=== PATIENT | female | born 1930 | race Caucasian/White ===

== ENCOUNTER 2018-07-23 20:21 | Observation (INO) ==
[2018-07-24] MEDS ORDERED: Naloxone 0.4 MG/ML INJ IVP PRN (02:20)
[2018-07-24] MEDS ORDERED: Dextrose Gel 15 GM/37.5 ML TUBE PO PRN ×2 (02:22)
[2018-07-24] MEDS ORDERED: D5% in Water 1,000 ML IVC PRN (02:22)
[2018-07-24] MEDS ORDERED: *HR* Dextrose 50 % in Water (Syg) 50 ML SYRINGE IVP PRN (02:22)
--- NOTE | 2018-07-24 02:25 | Internal Med History&Physical ---
Date of Encounter: 07/24/18 Time of Encounter: 01:30 Internal Medicine - H&P: HPI Chief complaint: Chest pain, bradycardia Admitted From: Hospital to Hospital Transfer Plans for Post Hospital Care: Home History of present illness: Ms. Malagon is a 88 year old female Patient presented for chest pain as well as bradycardia. She states that she began having discomfort 2 days ago, thought it was acid reflux. When her daughter had come to visit, she noted that she was breathing heavily, and looked pale. She encouraged her mom to then go to the ER for evaluation. Patient describes her pain as heaviness, no radiation. Feels it in the center of her chest. She sees. Dr. Foster of cardiology outpatient, and has had discussions with him regarding her low heart rate. She has a history of atrial fibrillation. In the ER her chest x-ray showed bibasilar atelectasis or infiltrate, right greater than left with mild pulmonary vascular congestion. Troponin was undetectable, cbc showed a thrombocytopenia of 107. BMP was at baseline. EKG showed a rate of 53, and atrial fibrillation. Cardiology was called from the ER at [place], and will see the patient in consult when she arrives at [facility]. They recommended an echocardiogram in the AM. She was transferred her for further management. Currently patient denies chest pain, has not had shortness of breath. She is resting comfortably in the hospital bed. She denies nausea, vomiting, diarrhea, constipation, and abdominal pain as well. Past Med Surg Social Fam HX - Past Medical History Medical history: atrial fibrillation, diabetes, hyperlipidemia, hypertension, thyroid disease, other Additional medical history: A-Fib, Breast CA Psychiatric history: anxiety - Past Surgical History Surgical History: breast surgery, hysterectomy Additional surgical history: Left mastectomy - Social History Smoking Status: Never smoker Smokeless Tobacco Status: No Alcohol use: none Drug use: none Internal Medicine - H&P: Meds Amlodipine [Norvasc] 5 mg PO DAILY 06/15/15 [History] Aspirin [Aspirin] 81 mg PO DAILY 06/15/15 [History] Glimepiride [Amaryl] 2 mg PO DAILY 06/15/15 [History] Albuterol Sulfate [Albuterol Inhaler] 2 puff IH Q6HR PRN #1 [id number] 10/29/16 [Rx] Apixaban [Eliquis] 2.5 mg PO DAILY 12/16/17 [History] Levothyroxine [Synthroid] 175 mcg PO 0630 12/16/17 [History] Lisinopril [Zestril] 10 mg PO DAILY 12/16/17 [History] 3 Allergy/AdvReac Type Severity Reaction Status Date / Time No Known Allergies Allergy Verified 12/16/17 21:40 All Systems PM: A 10-system review of systems was performed and is negative for pertinent findings except as documented above in the HPI. - Constitutional Vitals: Temp Pulse Resp BP Pulse Ox 97.5 F L 63 16 149/90 97 07/23/18 22:44 07/23/18 22:44 07/23/18 22:44 07/23/18 22:44 07/23/18 22:44 General appearance: Present: cooperative, A&O X 3, pleasant, no acute distress, answers questions appropriately Exam: as above - Head Head exam: Present: normal inspection - Eye Eye exam: Present: EOMI, normal appearance - Neck Neck exam general surgery: Present: full ROM. Absent: tenderness - Respiratory Respiratory exam: Present: CTAB. Absent: chest wall tenderness, respiratory distress, wheezes - Cardiovascular Cardiovascular exam: Present: bradycardia. Absent: diastolic murmur, systolic murmur - GI/Abdominal GI/Abdominal exam: Present: normal bowel sounds, soft. Absent: tenderness - Extremities Exam Extremities exam: Present: warm, radial pulses palpable and symmetrical. Absent : calf tenderness, pedal edema, tenderness - Neurological Exam Neurological exam: Present: no focal deficits, strengths equal and symetr throughout. Absent: motor sensory deficit, facial droop, speech deficit - Skin Skin exam: Present: dry, normal color, warm - Assessment and plan (1) Bradycardia Current Visit: No Status: Acute Assessment and plan: Heart rate around the mid 50s. Has had mentioned to her that she may need a pace maker in the future. campus monitor Continue to trend troponins. Cardiology consult in the morning. (2) Atrial fibrillation Current Visit: No Status: Acute Assessment and plan: Rate of 53, takes eliquis for anticoagulation. Continue to monitor. Cardiology consult in the AM. Qualifiers: Atrial fibrillation type: chronic Qualified Code(s): I48.2 - Chronic atrial fibrillation (3) Chest pain Current Visit: Yes Status: Acute Assessment and plan: Now resolved. Continue to trend troponins. Qualifiers: Qualified Code(s): R07.9 - Chest pain, unspecified (4) Diabetes Current Visit: Yes Status: Acute Assessment and plan: Takes glimepiride at home. Hold home meds Monitor sugars Q6H Low dose sliding scale insulin as needed. Qualifiers: Qualified Code(s): E11.9 - Type 2 diabetes mellitus without complications (5) Hypothyroid Current Visit: Yes Status: Acute Assessment and plan: Takes levothyroxine at home. Continue home meds Qualifiers: Qualified Code(s): E03.9 - Hypothyroidism, unspecified (6) History of hypertension Current Visit: Yes Status: Acute Assessment and plan: Currently controlled Continue to monitor. (7) DVT prophylaxis Current Visit: Yes Status: Acute Assessment and plan: Patient takes eliquis at home, may be getting a pace maker today. Will hold eliquis for now, SCDs until decision made about pace maker. - Time Spent With Patient Total time spent is greater than 50% in coordination of care (as documented) at patient's floor/unit and/or counseling patient: Greater than 35 minutes
[2018-07-24] MEDS: Insulin LISPRO 300 UNITS/3 ML VIAL SQ SCH ×3 (06:35→17:50)
[2018-07-24 06:57] LABS: Hematocrit 50.5 % (35.3-44.9); Mean Corpuscular HGB Conc 31.7 g/dL (31.6-35.5); Mean Corpuscular Hemoglobin 29.5 pg (28.0-33.3); Mean Platelet Volume 12.3 fL (9.4-12.4); Platelet Count 107 K/mcL (140-400); Red Blood Count 5.43 M/mcL (3.82-4.97); Red Cell Distribution Width 14.1 % (11.5-14.5)
[2018-07-24 07:25] LABS: Calcium 9.6 mg/dL (8.6-10.3)
[2018-07-24] MEDS ORDERED: Perflutren Lipid Microsphere 1.3 ML in 0.9 % Sodium Chloride 8.7 ML IVP ONE (09:36)
--- NOTE | 2018-07-24 10:23 | Internal Med Progress Note ---
<Keshawn Perez - Last Filed: 07/24/18 16:57> Hospitalist Progress Note - Encounter Date of Encounter: 07/24/18 Time of Encounter: 10:16 - Subjective Interval History: Patient seen and examined this morning, no acute events overnight Patient no longer continues of chest pain, she states she is thirsty I advised her that we would be performing an echocardiogram on her and would await further recommendations from cardiology She understood and agreed - Exam Vitals: Temp Pulse Resp BP Pulse Ox 97.6 F 51 18 108/68 94 07/24/18 07:35 07/24/18 07:35 07/24/18 07:35 07/24/18 07:35 07/24/18 07:35 Exam: Patient in no acute distress, alert and oriented 3 Heart in bradycardic rate and regular rhythm, no murmur or gallop Lung sounds clear in the superior lung ram, mild diffuse rales in the inferior lung ram Abdomen obese and soft and nontender Legs nonedematous Skin warm and dry - Assessment and Plan (1) Chest pain Current Visit: Yes Status: Acute Assessment and Plan: Patient presented with chest pain that she described as pressure without radiation Troponins trended in the emergency department were negative EKG showed atrial fibrillation with bradycardia but was otherwise normal Plan Chest pain has resolved We will address bradycardia and atrial fibrillation Cardiology consulted Patient is on continuous telemetry (2) Bradycardia Current Visit: Yes Status: Acute Assessment and Plan: Patient continues to be bradycardic Cardiology has been consulted and will see the patient this morning Apparently she has had a conversation with Dr. Foster in the past about a pacemaker Plan Patient is on continuous telemetry Echocardiogram ordered and scheduled for this morning We will continue to monitor the patient and defer to cardiology recommendations (3) Atrial fibrillation Current Visit: Yes Status: Chronic Assessment and Plan: Patient has a chronic history of atrial fibrillation for which she takes Eliquis for anticoagulation On exam patient is bradycardic with regular rhythm Plan Patient on continuous telemetry Cardiology consult, and requests is being held for now until decision about pacemakers is made Echocardiogram ordered and scheduled for this morning Rest of plan as seen above we will continue to monitor (4) Diabetes Current Visit: Yes Status: Acute Assessment and Plan: Patient takes glimepiride at home Plan Hold home meds Low dose sliding scale insulin and 6hr glucose checks (5) Hypothyroid Current Visit: Yes Status: Acute Assessment and Plan: Patient takes Synthroid at home which we will continue here (6) History of hypertension Current Visit: Yes Status: Acute Assessment and Plan: Patient takes lisinopril here Blood pressure currently controlled and stable without medication we will continue to monitor (7) Thrombocytopenia Current Visit: Yes Status: Acute Assessment and Plan: Patient presented with thrombocytopenia (107) however based on data from previous visits this appears to be her baseline 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 CMP in the AM to assess liver function We will continue to monitor serial labs and for signs of bleeding DVT Prophylaxis: EPCDs - Time Spent with Patient Total time spent is greater than 50% in coordination of care (as documented) at patient's floor/unit and/or counseling patient: Internal Medicine: Result - Labs CBC & Chem 7: 07/24/18 06:43 07/24/18 06:43 Labs: Short CBC 07/24/18 Range/Units 06:43 WBC 8.4 (4.3-11.1) K/mcL Hgb 16.0 H (11.5-15.4) g/dL Hct 50.5 H (35.3-44.9) % Plt Count 107 L (140-400) K/mcL BMP 07/24/18 06:43 Sodium 145 Potassium 4.0 Chloride 110 H Carbon Dioxide 27 BUN 25 H Creatinine 1.12 Glucose 152 H Calcium 9.6 Cardiac Enzymes 07/24/18 07/24/18 Range/Units 02:04 07:55 Troponin I < 0.03 < 0.03 (< 0.04) ng/mL Consult Discharge Plan - Plan Referrals: Benedicto Lynn DO [Primary Care Provider] - <Jarad Jiménez - Last Filed: 07/24/18 17:49> Hospitalist Progress Note - Encounter Date of Encounter: 07/24/18 - Exam Vitals: Temp Pulse Resp BP Pulse Ox 98.0 F 61 18 132/59 95 07/24/18 15:44 07/24/18 15:44 07/24/18 15:44 07/24/18 15:44 07/24/18 15:44 - Assessment and Plan (1) Atrial fibrillation Current Visit: Yes Status: Chronic (2) Bradycardia Current Visit: Yes Status: Acute (3) Chest pain Current Visit: Yes Status: Acute (4) Diabetes Current Visit: Yes Status: Acute (5) Hypothyroid Current Visit: Yes Status: Acute (6) History of hypertension Current Visit: Yes Status: Acute (7) Thrombocytopenia Current Visit: Yes Status: Acute - Time Spent with Patient Total time spent is greater than 50% in coordination of care (as documented) at patient's floor/unit and/or counseling patient: Internal Medicine: Result - Labs CBC & Chem 7: 07/24/18 06:43 07/24/18 06:43 Labs: Short CBC 07/24/18 Range/Units 06:43 WBC 8.4 (4.3-11.1) K/mcL Hgb 16.0 H (11.5-15.4) g/dL Hct 50.5 H (35.3-44.9) % Plt Count 107 L (140-400) K/mcL BMP 07/24/18 06:43 Sodium 145 Potassium 4.0 Chloride 110 H Carbon Dioxide 27 BUN 25 H Creatinine 1.12 Glucose 152 H Calcium 9.6 Cardiac Enzymes 07/24/18 07/24/18 Range/Units 02:04 07:55 Troponin I < 0.03 < 0.03 (< 0.04) ng/mL - Impressions Impressions Echocardiogram 07/24/18 06:42 Impressions: LVEF 60%. Normal LV chamber size, wall thickness and function. Indeterminate diastolic function. Right ventricle was not well visualized. Grossly, it is normal in size and function. Mild pulmonary hypertension. No significant valvular dysfunction. There is a small to moderate pericardial effusion, which is largest along the inferior and inferolateral segments of the LV. No tamponade. Left Ventricular Wall Motion: Rest Echo Findings All wall segments showed normal motion. Findings: Study Quality * Technically adequate exam. ECG Findings * Atrial fibrillation. Left Ventricle * LVEF 60%. * Normal LV chamber size, wall thickness and function. * Indeterminate diastolic function. Right Ventricle * Right ventricle was not well visualized. Grossly, it is normal in size and function. Left Atrium * Mildly dilated left atrium. Right Atrium * Normal right atrial size. Aortic Valve * Aortic valve not well visualized. * No aortic regurgitation. * No aortic stenosis. Mitral Valve * Normal mitral valve structure and function. * No mitral stenosis. * Trace mitral regurgitation. Tricuspid Valve * Normal tricuspid valve structure and function. * Trace tricuspid regurgitation. * Mild pulmonary hypertension. Pulmonic Valve * Pulmonic valve not well visualized. Aorta * Normally sized aortic root. Pericardium * There is a small to moderate pericardial effusion present, which is largest along the inferior and inferolateral segments of the LV. No tamponade. IVC * The IVC is not well evaluated. Pulmonary Artery * Normal visualized portions of the main pulmonary artery. - Attending Attestation I examined this patient and my medical decision-making was reviewed with the Resident Physician. I agree with the documented findings, disposition and treatment plan as described except to the extent set forth below. <Keshawn Perez - Last Filed: 07/24/18 16:57> (1) Chest pain Qualifiers: Chest pain type: unspecified Qualified Code(s): R07.9 - Chest pain, unspecified (3) Atrial fibrillation Qualifiers: Atrial fibrillation type: chronic Qualified Code(s): I48.2 - Chronic atrial fibrillation (4) Diabetes Qualifiers: Diabetes mellitus type: type 2 Diabetes mellitus long chain beamer insulin use: without custodial use Diabetes mellitus complication status: without complication Qualified Code(s): E11.9 - Type 2 diabetes mellitus without complications (5) Hypothyroid Qualifiers: Hypothyroidism type: unspecified Qualified Code(s): E03.9 - Hypothyroidism, unspecified <Joym,Fran Rheem - Last Filed: 07/24/18 17:49> (1) Atrial fibrillation Qualifiers: Atrial fibrillation type: chronic Qualified Code(s): I48.2 - Chronic atrial fibrillation (3) Chest pain Qualifiers: Chest pain type: unspecified Qualified Code(s): R07.9 - Chest pain, unspecified (4) Diabetes Qualifiers: Diabetes mellitus type: type 2 Diabetes mellitus custodial insulin use: without long chain beamer use Diabetes mellitus complication status: without complication Qualified Code(s): E11.9 - Type 2 diabetes mellitus without complications (5) Hypothyroid Qualifiers: Hypothyroidism type: unspecified Qualified Code(s): E03.9 - Hypothyroidism, unspecified
--- NOTE | 2018-07-24 11:49 | Cardiology Consult Note ---
<Ronda Urban - Last Filed: 07/24/18 12:16> Date of Encounter: 07/24/18 Time of Encounter: 11:00 Assessment and Plan (1) Chest pain Current Visit: Yes Status: Acute Per cardiology: -Admitted with chest tightness. -Further described as orthopnea. -Deneis current chest pain. -States pain resolved after IV lasix. -ECG with no acute ischemic changes. -Troponins negative x3. -Suspect chest pain related to CHF. Qualifiers: Chest pain type: unspecified Qualified Code(s): R07.9 - Chest pain, unspecified (2) CHF (congestive heart failure) Current Visit: Yes Status: Acute Per cardiology: -Symptoms suggestive of CHF. -Chest x-ray with mild pulmonary vascular congestion. -BNP 200 on admission. -Was given IV lasix in ER. -Currently net negative 700ml. -States symptoms now resolved. -TTE pending. -09/2016 TTE with LVEF 60%, indeterminate diastolic function, mild UT, no segmental wall motion abnormalities noted. -Strict i/os, fluid restriction, daily weights. -CHF education reviewed with patient and family -Will start daily lasix. Qualifiers: Heart failure type: unspecified Heart failure chronicity: unspecified Qualified Code(s): I50.9 - Heart failure, unspecified (3) Atrial fibrillation Current Visit: Yes Status: Chronic Per cardiology: -Known chronic a.fib. -Known bradycardia. -Average HR previous 12 hours noted to be 63, a.fib. Minimum HR 48, nocturnal. -Has recent holter 01/2018 with a.fib, HR 57. Frequent pauses up to 3.5 seconds. Was seen by OP EP who recommended close monitoring and compliance with CPAP. -Deneis dizziness, lightheadedness. -Not on AV christelle mikel due to bradycardia. ON eliquis in outpatient setting. -If no significant findings, recommend resuming eliquis. Qualifiers: Atrial fibrillation type: chronic Qualified Code(s): I48.2 - Chronic atrial fibrillation Discussion w patient/family: The assessment and plan as outlined above was discussed with the patient and/or family members who expressed understanding and agreement. All questions were answered. Thank you for involving us in the care of your patient. Please call with any questions. Discussed and reviewed with . History of Present Illness Consult date: 07/24/18 Requesting physician: Omero Parker Consult reason: bradycardia Chief complaint: chest tightness History of present illness: Ms. Malagon is a 88 year old female with a relevant past medical history of atrial fibrillation, bradycardia, ANGELITO, HTN, HLD, breast cancer who presented to [facility] with complaints of chest tightness, shortness of breath, and just not feeling well. Patient states for the previous 2 days had noticed some chest tightness when laying down. Patient also reported some shortness of breath. Denies worsening edema. Denies exertional chest pain/tightness. Patient denies current chest pain/tightness. Patient states symptoms resolved after given IV lasix in ER. Denies dizziness, lightheadedness. Past Med Surg Social Fam HX - Past Medical History Attestation: Yes The following information was validated with the patient. Source: patient, old records reviewed, obtained from family Medical history: atrial fibrillation, diabetes, hyperlipidemia, hypertension, thyroid disease, other Additional medical history: A-Fib, Breast CA Psychiatric history: anxiety - Past Surgical History Surgical History: breast surgery, hysterectomy Additional surgical history: Left mastectomy - Social History Smoking Status: Never smoker Smokeless Tobacco Status: No Alcohol use: none Drug use: none Medications and Allergies Amlodipine [Norvasc] 5 mg PO DAILY 06/15/15 [History] Aspirin [Aspirin] 81 mg PO DAILY 06/15/15 [History] Glimepiride [Amaryl] 6 mg PO DAILY 06/15/15 [History] Apixaban [Eliquis] 2.5 mg PO BID 12/16/17 [History] Lisinopril [Zestril] 10 mg PO DAILY 12/16/17 [History] Levothyroxine [Levothyroxine Sodium] 137 mcg PO DAILY 07/24/18 [History] Simvastatin [Zocor] 20 mg PO HS 07/24/18 [History] 3 Allergy/AdvReac Type Severity Reaction Status Date / Time No Known Allergies Allergy Verified 12/16/17 21:40 All Systems Review: The remainder of the systems were reviewed and are negative - Cardiovascular Cardiovascular: as per HPI, chest pain at rest, dyspnea at rest, dyspnea on exertion, orthopnea Physical Examination Vital Signs, Last 4 Hours Temp Pulse Resp BP Pulse Ox 07/24/18 10:52 97.7 F 69 18 113/79 96 General: Conversant, No Apparent Distress HEENT: Atraumatic, Normocephaly, Mucus Membranes Moist Neck: No JVD, Normal carotid pulses Cardiac: Normal S1 and S2, No Murmur, Other (Irregularly irregular) Lungs: Normal Breath Sounds, No Wheeze, Rales, Rhonchi Neuro: Alert and responsive, No focal deficits noted Abdomen: Soft, Non-Tender Skin: No rashes noted on visualized skin Musculoskeletal: No Chest Wall Tenderness Extremities: No Clubbing, No Cyanosis, No Edema, Normal Pulses Results 07/24/18 06:43 07/24/18 06:43 Lab Results Active Medications Dextrose/Water (Dextrose 50% (Syg)) 25 ml IVP AD PRN PRN Reason: Hypoglycemia Stop: 01/23/19 02:23 Glucagon (Glucagen) 1 mg IM ONCE PRN PRN Reason: Hypoglycemia Stop: 01/23/19 02:23 Glucose (Gluctose) 15 gm PO ONCE PRN PRN Reason: Hypoglycemia Stop: 01/23/19 02:23 Glucose (Gluctose) 30 gm PO ONCE PRN PRN Reason: Hypoglycemia Stop: 01/23/19 02:23 Dextrose (Dextrose 5%) 1,000 mls @ 100 mls/hr IVC .Q10H PRN PRN Reason: HYPOGLYCEMIA Stop: 01/23/19 02:23 Insulin Human Lispro (Humalog) 0 units SQ Q6HR RUFINA PRN Reason: Protocol Stop: 01/23/19 06:01 Last Admin: 07/24/18 11:56 Dose: Not Given Naloxone HCl (Narcan) 0.4 mg IVP Q2MIN PRN PRN Reason: SEE COMMENTS Stop: 01/23/19 02:21 Laboratory Tests 07/23/18 07/24/18 07/24/18 17:23 02:04 06:43 Hgb 16.0 H Creatinine Troponin I < 0.03 < 0.03 07/24/18 07/24/18 06:43 07:55 Hgb Creatinine 1.12 Troponin I < 0.03 - Imaging and Cardiology Chest Xray: report reviewed Stress Test: report reviewed Echo: pending, report reviewed - EKG Interpretation EKG results cardiology: personally reviewed (ECG with a.fib, slow ventricular response, HR 53.), other (Telemetry reviewed with average HR previous 12 hours noted to be 63, a.fib. Minimum HR 48, nocturnal. PVCs noted.) Consult Discharge Plan - Plan Referrals: Benedicto Lynn, DO [Primary Care Provider] - <Bernice Sellers - Last Filed: 07/24/18 19:34> Date of Encounter: 07/24/18 - Attending Attestation Patient was seen and evaluated independently by me. Findings, assessment and plan were discussed at length with patient, questions answered. Agree with nurse practitioner's documentation. Addition as follows, 88 yoCF hf chronic Afib slow VR, pause<5", ANGELITO, breast Ca. P/w atypical chst pain, dyspnea. No ischemic ECG changes, neg trop. Responded to lasix. VR ok w/o AV blockers. Pt feels better when seen. HD stable, bibasilar fine crackles, no LE edema. TTE EF 60%, small pericardial effusion w/o tamponade A: HFpEF mild fluid overload, chronic afib with slow VR, pause<5" P: lasix for volume ctr ask family and pt to get a scale at home for daily wt, if wt gain >3lb, extra lasix dose with KCL 2-3 days eliquis outpt f/u for need for PPM Bernice Sellers MD, PhD Assessment and Plan Discussion w patient/family: The assessment and plan as outlined above was discussed with the patient and/or family members who expressed understanding and agreement. All questions were answered. Thank you for involving us in the care of your patient. Please call with any questions. History of Present Illness History of present illness: Ms. Malagon is a 88 year old female All Systems Review: The remainder of the systems were reviewed and are negative Physical Examination Vital Signs, Last 4 Hours Temp Pulse Resp BP Pulse Ox 07/24/18 19:03 97.5 F L 60 22 127/81 92 07/24/18 15:44 98.0 F 61 18 132/59 95 Results 07/24/18 06:43 07/24/18 06:43 Lab Results 07/24/18 07/24/18 07/24/18 02:04 06:43 06:43 WBC 8.4 Hgb 16.0 H Hct 50.5 H Plt Count 107 L Sodium 145 Potassium 4.0 Chloride 110 H Carbon Dioxide 27 BUN 25 H Creatinine 1.12 Glucose 152 H Calcium 9.6 Troponin I < 0.03 07/24/18 07:55 WBC Hgb Hct Plt Count Sodium Potassium Chloride Carbon Dioxide BUN Creatinine Glucose Calcium Troponin I < 0.03
[2018-07-24] MEDS ORDERED: Furosemide 40 MG/4 ML VIAL IVP SCH (12:30)
[2018-07-24] MEDS: Furosemide 20 MG TABLET PO SCH (13:16)
[2018-07-24] MEDS: Apixaban 5 MG TABLET PO SCH (20:38)
[2018-07-25] MEDS: Insulin LISPRO 300 UNITS/3 ML VIAL SQ SCH ×4 (00:41→16:58)
[2018-07-25 04:21] LABS: Basophils % 0.4 %; Eosinophils # 0.1 K/mcL (0.0-0.6); Eosinophils % 1.2 %; Hematocrit 50.3 % (35.3-44.9); Immature Granulocytes % 0.8 % (0-4); Lymphocytes % 11.5 %; Mean Corpuscular HGB Conc 31.8 g/dL (31.6-35.5); Mean Corpuscular Hemoglobin 29.2 pg (28.0-33.3); Mean Corpuscular Volume 91.8 fL (83.0-100.0); Mean Platelet Volume 11.9 fL (9.4-12.4); Monocytes % 11.9 %; Neutrophils # 6.1 K/mcL (1.6-8.9); Platelet Count 103 K/mcL (140-400); Red Blood Count 5.48 M/mcL (3.82-4.97); Segmented Neutrophils % 74.2 %
[2018-07-25 04:38] LABS: Albumin 3.5 g/dL (3.5-5.7); Albumin/Globulin Ratio 1.3 (1.1-2.2); Bilirubin,Total 0.7 mg/dL (0.3-1.0); Calcium 9.3 mg/dL (8.6-10.3); Globulin 2.8 g/dL (2.4-3.5); Potassium 3.7 mEq/L (3.5-5.1); Total Protein 6.3 g/dL (6.4-8.9)
[2018-07-25] MEDS ORDERED: Furosemide 20 MG/2 ML VIAL IVP ONE (07:28)
--- NOTE | 2018-07-25 08:02 | Event Note ---
Date of Encounter: 07/25/18 Time of Encounter: 08:00 - Cardiology Event Note Per 's note, diuresing well with lasix, currently net negative 1L. Diastolic CHF. A.fib with slow ventricular response, chronic. Cardiology will sign off and will arrange close outpatient follow up.
[2018-07-25] MEDS: Furosemide 20 MG TABLET PO SCH (10:38)
[2018-07-25] MEDS: amLODIPine 5 MG TABLET PO SCH (10:38)
[2018-07-25] MEDS: Aspirin 81 MG TAB.CHEW PO SCH (10:38)
[2018-07-25] MEDS: Apixaban 5 MG TABLET PO SCH ×2 (10:57→20:37)
--- NOTE | 2018-07-25 15:02 | Internal Med Progress Note ---
<Keshawn Perez - Last Filed: 07/25/18 14:59> Hospitalist Progress Note - Encounter Date of Encounter: 07/25/18 Time of Encounter: 14:59 - Subjective Interval History: Patient seen and examined this morning, no acute events overnight Patient no longer complains of chest pain, she states she wants to go home I advised her that we recommended staying another day for continued diuresis She understood and agreed She also stated that she would like her code status changed to DNR/DNI - Exam Vitals: Temp Pulse Resp BP Pulse Ox 97.9 F 57 17 140/53 94 07/25/18 11:11 07/25/18 11:11 07/25/18 11:11 07/25/18 11:11 07/25/18 11:11 Exam: Patient in no acute distress, alert and oriented 3 Heart in bradycardic rate and regular rhythm, no murmur or gallop Lung sounds clear in the superior lung ram, mild diffuse rales in the inferior lung ram Abdomen obese and soft and nontender Legs nonedematous Skin warm and dry - Assessment and Plan (1) Chest pain Current Visit: Yes Status: Resolved Assessment and Plan: Patient presented with chest pain that she described as pressure without radiation Troponins trended in the emergency department were negative EKG showed atrial fibrillation with bradycardia but was otherwise normal Plan Chest pain has resolved Likely secondary to pleural effusion We will continue diuresis Cardiology consulted and recommends continued medical management with eliquis and outpatient follow up Patient is on continuous telemetry We will continue to monitor (2) Bradycardia Current Visit: Yes Status: Acute Assessment and Plan: Patient continues to be bradycardic Cardiology has been consulted and recommends medical management and outpatient follow up Plan Patient is on continuous telemetry Echocardiogram showed EF 60%, small pericardial effusion, otherwise relatively normal We will continue to monitor (3) Atrial fibrillation Current Visit: Yes Status: Chronic Assessment and Plan: Patient has a chronic history of atrial fibrillation for which she takes Eliquis for anticoagulation On exam patient is bradycardic with regular rhythm Plan Patient on continuous telemetry Rest of plan as seen above we will continue to monitor (4) Diabetes Current Visit: Yes Status: Acute Assessment and Plan: Patient takes glimepiride at home Plan Hold home meds Low dose sliding scale insulin and 6hr glucose checks (5) Hypothyroid Current Visit: Yes Status: Acute Assessment and Plan: Patient takes Synthroid at home which we will continue here (6) History of hypertension Current Visit: Yes Status: Acute Assessment and Plan: Patient takes lisinopril here Blood pressure currently controlled and stable without medication we will continue to monitor (7) Thrombocytopenia Current Visit: Yes Status: Acute Assessment and Plan: Patient presented with thrombocytopenia (107) however based on data from previous visits this appears to be her baseline 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 CMP negative for evidence of impaired hepatic function Recommend further follow up outpatient We will continue to monitor serial labs and for signs of bleeding DVT Prophylaxis: Eliquis - Time Spent with Patient Total time spent is greater than 50% in coordination of care (as documented) at patient's floor/unit and/or counseling patient: Internal Medicine: Result - Labs CBC & Chem 7: 07/25/18 03:56 07/25/18 03:56 Labs: Short CBC 07/25/18 Range/Units 03:56 WBC 8.3 (4.3-11.1) K/mcL Hgb 16.0 H (11.5-15.4) g/dL Hct 50.3 H (35.3-44.9) % Plt Count 103 L (140-400) K/mcL Neutrophils # 6.1 (1.6-8.9) K/mcL BMP 07/25/18 03:56 Sodium 143 Potassium 3.7 Chloride 107 Carbon Dioxide 29 BUN 26 H Creatinine 1.29 H Glucose 143 H Calcium 9.3 Liver Function 07/25/18 Range/Units 03:56 Total Bilirubin 0.7 (0.3-1.0) mg/dL AST 19 (13-39) Units/L ALT 15 (7-52) Units/L Alkaline Phosphatase 65 (34-104) Units/L Albumin 3.5 (3.5-5.7) g/dL - VTE Documentation of Mechanical Device: Intermittent pneumatic compression device Consult Discharge Plan - Plan Referrals: Benedicto Lynn DO [Primary Care Provider] - <Jarad Jiménez - Last Filed: 07/25/18 17:34> Hospitalist Progress Note - Encounter Date of Encounter: 07/25/18 - Exam Vitals: Temp Pulse Resp BP Pulse Ox 97.8 F 54 17 125/71 91 07/25/18 15:13 07/25/18 15:13 07/25/18 15:13 07/25/18 15:13 07/25/18 15:13 - Assessment and Plan (1) Atrial fibrillation Current Visit: Yes Status: Chronic (2) Bradycardia Current Visit: Yes Status: Acute (3) Chest pain Current Visit: Yes Status: Resolved (4) Diabetes Current Visit: Yes Status: Acute (5) Hypothyroid Current Visit: Yes Status: Acute (6) History of hypertension Current Visit: Yes Status: Acute (7) Thrombocytopenia Current Visit: Yes Status: Acute - Time Spent with Patient Total time spent is greater than 50% in coordination of care (as documented) at patient's floor/unit and/or counseling patient: Internal Medicine: Result - Labs CBC & Chem 7: 07/25/18 03:56 07/25/18 03:56 Labs: Short CBC 07/25/18 Range/Units 03:56 WBC 8.3 (4.3-11.1) K/mcL Hgb 16.0 H (11.5-15.4) g/dL Hct 50.3 H (35.3-44.9) % Plt Count 103 L (140-400) K/mcL Neutrophils # 6.1 (1.6-8.9) K/mcL BMP 07/25/18 03:56 Sodium 143 Potassium 3.7 Chloride 107 Carbon Dioxide 29 BUN 26 H Creatinine 1.29 H Glucose 143 H Calcium 9.3 Liver Function 07/25/18 Range/Units 03:56 Total Bilirubin 0.7 (0.3-1.0) mg/dL AST 19 (13-39) Units/L ALT 15 (7-52) Units/L Alkaline Phosphatase 65 (34-104) Units/L Albumin 3.5 (3.5-5.7) g/dL - Attending Attestation I examined this patient and my medical decision-making was reviewed with the Resident Physician. I agree with the documented findings, disposition and treatment plan as described except to the extent set forth below. Okay to hold off IV lasix for now and just resume home PO Lasix dose. Sleep stud tonight. Likely there is ANGELITO component to patient's symptoms. She has difficulties with masks and she may refuse sleep study tonight but will try. If patient remains stable, likely discharge tomorrow. Discussed code status with patient and POA, she decides DNR CCA/CCI. <Keshawn Perez - Last Filed: 07/25/18 14:59> (1) Chest pain Qualifiers: Chest pain type: unspecified Qualified Code(s): R07.9 - Chest pain, unspecified (3) Atrial fibrillation Qualifiers: Atrial fibrillation type: chronic Qualified Code(s): I48.2 - Chronic atrial fibrillation (4) Diabetes Qualifiers: Diabetes mellitus type: type 2 Diabetes mellitus terminal computer operator insulin use: without terminal computer operator use Diabetes mellitus complication status: without complication Qualified Code(s): E11.9 - Type 2 diabetes mellitus without complications (5) Hypothyroid Qualifiers: Hypothyroidism type: unspecified Qualified Code(s): E03.9 - Hypothyroidism, unspecified <Jarad Jiménez - Last Filed: 07/25/18 17:34> (1) Atrial fibrillation Qualifiers: Atrial fibrillation type: chronic Qualified Code(s): I48.2 - Chronic atrial fibrillation (3) Chest pain Qualifiers: Chest pain type: unspecified Qualified Code(s): R07.9 - Chest pain, unspecified (4) Diabetes Qualifiers: Diabetes mellitus type: type 2 Diabetes mellitus residential insulin use: without terminal computer operator use Diabetes mellitus complication status: without complication Qualified Code(s): E11.9 - Type 2 diabetes mellitus without complications (5) Hypothyroid Qualifiers: Hypothyroidism type: unspecified Qualified Code(s): E03.9 - Hypothyroidism, unspecified
[2018-07-25] MEDS ORDERED: Insulin LISPRO 300 UNITS/3 ML VIAL SQ SCH (21:00)
[2018-07-26 05:50] LABS: Basophils % 0.6 %
[2018-07-26 05:52] LABS: Basophils # 0.1 K/mcL (0.0-0.2); Eosinophils # 0.2 K/mcL (0.0-0.6); Eosinophils % 1.8 %; Hemoglobin 16.1 g/dL (11.5-15.4); Immature Granulocytes % 0.6 % (0-4); Immature Platelets 12.4 % (1.1-6.1); Lymphocytes # 0.9 K/mcL (0.6-4.6); Lymphocytes % 10.7 %; Mean Corpuscular HGB Conc 32.2 g/dL (31.6-35.5); Mean Corpuscular Hemoglobin 29.5 pg (28.0-33.3); Mean Corpuscular Volume 91.7 fL (83.0-100.0); Mean Platelet Volume 12.7 fL (9.4-12.4); Monocytes % 12.7 %; Platelet Count 103 K/mcL (140-400); Red Blood Count 5.45 M/mcL (3.82-4.97); Red Cell Distribution Width 14.2 % (11.5-14.5); Segmented Neutrophils % 73.6 %
[2018-07-26 06:09] LABS: Calcium 9.2 mg/dL (8.6-10.3); Potassium 3.8 mEq/L (3.5-5.1)
[2018-07-26] MEDS: Insulin LISPRO 300 UNITS/3 ML VIAL SQ SCH ×2 (08:48→12:00)
[2018-07-26] MEDS: Apixaban 5 MG TABLET PO SCH (08:50)
[2018-07-26] MEDS: Aspirin 81 MG TAB.CHEW PO SCH (08:50)
[2018-07-26] MEDS: Furosemide 20 MG TABLET PO SCH (08:50)
[2018-07-26] MEDS: amLODIPine 5 MG TABLET PO SCH (08:50)
[2018-07-26 10:43] VITALS: BP 118/65
--- NOTE | 2018-07-26 13:01 | Discharge Summary ---
<Keshawn Perez Scooby - Last Filed: 07/26/18 14:14> - NOTES TO OUTPATIENT PROVIDER Notes to Outpatient Provider: Patient was admitted for chest pain and atrial fibrillation with bradycardia. Cardiology was consultation and the patient was evaluated for possible pacemaker. They recommended resuming eliquis and outpatient follow-up. We have also been diuresing the patient here. We will discharge in stable condition with BMP scheduled in 3 days. Recommend outpatient sleep study. Date of Encounter: 07/26/18 Time of Encounter: 12:57 - Discharge Diagnosis (1) Chest pain Priority: Primary Status: Resolved Assessment and Plan: Patient presented with chest pain that she described as pressure without radiation Troponins trended in the emergency department were negative EKG showed atrial fibrillation with bradycardia but was otherwise normal Plan Chest pain has resolved Likely secondary to pleural effusion Patient effectively diuresed with improvement in clinical disposition and exam Cardiology consulted and recommends continued medical management with eliquis and outpatient follow up Qualifiers: Chest pain type: unspecified Qualified Code(s): R07.9 - Chest pain, unspecified (2) Bradycardia Priority: Secondary Status: Acute Assessment and Plan: Patient heart rate averaging high 50s Cardiology has been consulted and recommends medical management and outpatient follow up Plan Echocardiogram showed EF 60%, small pericardial effusion, otherwise relatively normal Discharge in stable condition (3) Atrial fibrillation Priority: Secondary Status: Chronic Assessment and Plan: Patient has a chronic history of atrial fibrillation for which she takes Eliquis for anticoagulation On exam patient is bradycardic with regular rhythm Plan Discharge on eliquis in stable condition Qualifiers: Atrial fibrillation type: chronic Qualified Code(s): I48.2 - Chronic atrial fibrillation (4) Diabetes Priority: Secondary Status: Chronic Assessment and Plan: Patient takes glimepiride at home Plan Discharge on home medications Qualifiers: Diabetes mellitus type: type 2 Diabetes mellitus retirement insulin use: without termite renewal inspector use Diabetes mellitus complication status: without complication Qualified Code(s): E11.9 - Type 2 diabetes mellitus without complications (5) Hypothyroid Priority: Secondary Status: Chronic Assessment and Plan: Patient takes Synthroid at home which we will continue on discharge Qualifiers: Hypothyroidism type: unspecified Qualified Code(s): E03.9 - Hypothyroidism , unspecified (6) History of hypertension Priority: Secondary Status: Chronic Assessment and Plan: Discharge on home lisinopril (7) Thrombocytopenia Priority: Secondary Status: Chronic Assessment and Plan: Patient presented with thrombocytopenia (107) however based on data from previous visits this appears to be her baseline 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 Malagon is a 88 year old female who presented for chest pain as well as bradycardia. She stated that she began having discomfort 2 days prior to admission, thought it was acid reflux. When her daughter had come to visit, she noted that she was breathing heavily, and looked pale. She encouraged her mom to then go to the ER for evaluation. Patient described her pain as heaviness, no radiation. [place] it in the center of her chest. She sees. Dr. Foster of cardiology outpatient, and has had discussions with him regarding her low heart rate. She has a history of atrial fibrillation. In the ER her chest x-ray showed bibasilar atelectasis or infiltrate, right greater than left with mild pulmonary vascular congestion. Troponin was undetectable, cbc showed a thrombocytopenia of 107. BMP was at baseline. EKG showed a rate of 53, and atrial fibrillation. Cardiology was called from the ER at [facility], and saw the patient in consult when she arrived at [facility]. They recommended an echocardiogram. Echocardiogram showed EF 60%, small pericardial effusion, otherwise relatively normal. Cardiology recommended continuing eliquis and outpatient follow up. Patient was kept in the hospital for diuresis of pulmonary effusion secondary to heart failure. She was effectively diuresed with cessation of symptoms and improvement of clinical disposition. She will be discharged with home medications and recommendation for sleep study. Discharge discussed with: patient, family - Time Spent with Patient Total time spent providing and/or coordinating discharge services: - Discharge Medications Home Medications: Amlodipine [Norvasc] 5 mg PO DAILY 06/15/15 [History] Aspirin 81 mg PO DAILY 06/15/15 [History] Glimepiride [Amaryl] 6 mg PO DAILY 06/15/15 [History] Apixaban [Eliquis] 2.5 mg PO BID 12/16/17 [History] Lisinopril [Zestril] 10 mg PO DAILY 12/16/17 [History] Levothyroxine [Levothyroxine Sodium] 137 mcg PO DAILY 07/24/18 [History] Simvastatin [Zocor] 20 mg PO HS 07/24/18 [History] Allergies/Adverse Reactions: 3 Allergy/AdvReac Type Severity Reaction Status Date / Time No Known Allergies Allergy Verified 12/16/17 21:40 Date of admission: 07/23/18 22:31 Primary care physician: Benedicto Lynn DO Consults: 07/24/18 02:27 Consult to Cardiology [CONS] Routine Comment: Consulting Provider: Cardiology [facility] Reason for Consult: Bradycardia, called from [facility] on 07/23/18 Call Completed: Yes Discharging clinician: Keshawn Perez - Constitutional Vitals: Temp Pulse Resp BP Pulse Ox 97.8 F 57 16 118/65 91 07/26/18 10:41 07/26/18 10:41 07/26/18 10:41 07/26/18 10:41 07/26/18 10:41 General appearance: Present: cooperative, A&O X 3, pleasant, no acute distress, answers questions appropriately Exam: Patient in no acute distress, alert and oriented 3 Heart in bradycardic rate and regular rhythm, no murmur or gallop Lung sounds clear in the superior lung ram, mild diffuse rales in the inferior lung ram Abdomen obese and soft and nontender Legs nonedematous Skin warm and dry - Patient Status Disposition: Home, Self-Care Condition: Good Functional capacity at discharge: independent ambulation Overall status at discharge: patient is progressing back to baseline - Discharge Instructions Instructions: Chest Pain (DC), Chest Pain (GEN) Follow Up With: Benedicto Lynn DO [Primary Care Provider] - 07/30/18 10:30 am (with NARGIS Hubbard.) Additional Instructions: Follow up with your PCP. Please go to your nearest [facility] outpatient lab to have labs drawn in at least 3 days. - Diet and Activity Activity: increase activity as tolerated Diet: diabetic diet, low fat, low cholesterol, low salt diet - VTE Documentation of Mechanical Device: Intermittent pneumatic compression device <Jarad Jiménez - Last Filed: 07/26/18 17:32> Date of Encounter: 07/26/18 - Discharge Diagnosis (1) Atrial fibrillation Status: Chronic Qualifiers: Atrial fibrillation type: chronic Qualified Code(s): I48.2 - Chronic atrial fibrillation (2) Bradycardia Status: Acute (3) Chest pain Status: Resolved Qualifiers: Chest pain type: unspecified Qualified Code(s): R07.9 - Chest pain, unspecified (4) Diabetes Status: Chronic Qualifiers: Diabetes mellitus type: type 2 Diabetes mellitus retirement insulin use: without retirement use Diabetes mellitus complication status: without complication Qualified Code(s): E11.9 - Type 2 diabetes mellitus without complications (5) Hypothyroid Status: Chronic Qualifiers: Hypothyroidism type: unspecified Qualified Code(s): E03.9 - Hypothyroidism , unspecified (6) History of hypertension Status: Chronic (7) Thrombocytopenia Status: Chronic Hospital course: Ms. Malagon is a 88 year old female - Time Spent with Patient Total time spent providing and/or coordinating discharge services: Date of admission: 07/23/18 22:31 Primary care physician: Benedicto Lynn DO Consults: 07/24/18 02:27 Consult to Cardiology [CONS] Routine Comment: Consulting Provider: [facility] Reason for Consult: Bradycardia, called from [facility] on 07/23/18 Call Completed: Yes - Constitutional Vitals: Temp Pulse Resp BP Pulse Ox 97.8 F 57 16 118/65 94 07/26/18 10:41 07/26/18 10:41 07/26/18 10:41 07/26/18 10:41 07/26/18 15:11 - Attending Attestation I examined this patient and my medical decision-making was reviewed with the Resident Physician. I agree with the documented findings, disposition and treatment plan as described except to the extent set forth below.
== END 2018-07-26 15:39 | disposition home or self-care (01) ==
LOC: 2ANU → SUATTDRO 22:31
PROVIDERS: ADMIT Family Medicine; ATTEND Student in an Organized Health Care Education/Training Program

== ENCOUNTER 2018-12-18 12:19 | Inpatient (IN) ==
--- NOTE | 2018-12-18 17:05 | Internal Med History&Physical ---
Date of Encounter: 12/18/18 Time of Encounter: 17:04 Internal Medicine - H&P: HPI Chief complaint: shortness of breath, chest pain Admitted From: Home Plans for Post Hospital Care: Transfer Detention Facility History of present illness: Ms. Malagon is a 88 year old female past medical history of A. fib, hypertension, diabetes, chronic kidney disease stage III, hypothyroidism is transferred with complain of shortness of breath and chest pain. Patient went to ER to another hospital with complain of shortness of breath which she noticed was significantly worse this morning with minimal exertion. Was associated with left-sided chest pain. Aspirin was not associated with deep breath or was not positional. It resolved by the time patient went to ER. Patient is a poor historian. Most history obtained from daughter and granddaughter. Per granddaughter patient was supposed to get a pacemaker placed. She has noted her to be more short of breath over the past few weeks. She does have history of anxiety and occasionally feels sudden shortness of breath. Denies any cough or sputum production. Denies any fevers nausea vomiting or associated sweating. Patient had workup done at that ER which showed EKG with atrial fibrillation without any ischemic changes. Negative troponin. BNP of 126. CBC within normal limit except Thrombocytopenia. Creatinine at 1.28 and BUN of 21. Patient's heart rate was in the high 30s and 40s. Patient remained hemodynamically stable while at the facility patient was transferred here as she wanted to follow our airplane rigger here. Chest x-ray showed possible pulmonary vascular congestion with right basilar infiltrate. Past Med Surg Social Fam HX - Past Medical History Medical history: atrial fibrillation, diabetes, hyperlipidemia, hypertension, thyroid disease, other Additional medical history: A-Fib, Breast CA Psychiatric history: anxiety - Past Surgical History Surgical History: breast surgery, hysterectomy Additional surgical history: Left mastectomy - Social History Smoking Status: Never smoker Smokeless Tobacco Status: No Alcohol use: none Drug use: none - Family History Mother History Unknown: Yes Internal Medicine - H&P: Meds Amlodipine [Norvasc] 5 mg PO DAILY 06/15/15 [History] Aspirin 81 mg PO DAILY 06/15/15 [History] Glimepiride [Amaryl] 6 mg PO DAILY 06/15/15 [History] Apixaban [Eliquis] 2.5 mg PO BID 12/16/17 [History] Lisinopril [Zestril] 10 mg PO DAILY 12/16/17 [History] Levothyroxine [Levothyroxine Sodium] 137 mcg PO DAILY 07/24/18 [History] Simvastatin [Zocor] 20 mg PO HS 07/24/18 [History] Allergy/AdvReac Type Severity Reaction Status Date / Time No Known Allergies Allergy Verified 12/16/17 21:40 All Systems PM: A 10-system review of systems was performed and is negative for pertinent findings except as documented above in the HPI. - Constitutional Vitals: Temp Pulse Resp BP Pulse Ox 97.9 F 50 19 151/68 95 12/18/18 14:59 12/18/18 14:59 12/18/18 14:59 12/18/18 14:59 12/18/18 14:59 Exam: Constitutional: Vitals as noted. Conversant. No Apparent Distress.difficult to hear Eyes : Sclera white, conjunctiva clear, no lid lag, PEARLA. ENT : Grossly normal hearing. Oropharyngeal exam unremarkable. Moist mucus membranes. mild JVD, no cervical lymphadenopathy. no thyromegaly or mass. Respiratory : Crackles at base bilaterally. No accessory muscle use, rales, rhonchi or wheezes Cardiovascular : RRR, +S1, +S2. no murmur, gallop, rubs. No chest wall tenderness GI/Abdominal : Soft, obese, Non-tender, Non-distended, normal bowel sounds, soft, no peritoneal signs. no orgenomegaly or mass appreciated. no hernia. Musculoskeletal: no deformity noted. 1+ edema. warm extremities, pulses palpable and symmetrical in UE/LE. no calf tenderness. mild pain with lt ankle range of motion. Neurological: AO X3, CN II-XII grossly intact, grossly normal motor and sensory exam. - Assessment and plan (1) Bradycardia Current Visit: Yes Status: Acute Assessment and plan: - Patient hemodynamically stable - Keep patient on telemetry - Currently with A. fib. Not on any AV christelle blocking agents. - We will consult cardiology for need for pacemaker (2) Shortness of breath Current Visit: Yes Status: Acute Assessment and plan: - Likely related to fluid overload with CHF exacerbation - Last echocardiogram with EF of 60-65 on 08/21/18 . Will repeat echo given some signs of CHF - We will give 1 dose of Lasix 40 mg monitor renal function while diuresis. - Fluid restriction diet and daily weights (3) HTN (hypertension) Current Visit: Yes Status: Acute Assessment and plan: - Continue home amlodipine. Will need confirmation of fall medication with pharmacy Qualifiers: Hypertension type: essential hypertension Qualified Code(s): I10 - Essential (primary) hypertension (4) HLD (hyperlipidemia) Current Visit: Yes Status: Acute Assessment and plan: Continue home medication Qualifiers: Hyperlipidemia type: unspecified Qualified Code(s): E78.5 - Hyperlipidemia, unspecified (5) CHF (congestive heart failure) Current Visit: No Status: Acute Assessment and plan: As above Qualifiers: Heart failure type: unspecified Heart failure chronicity: unspecified Qualified Code(s): I50.9 - Heart failure, unspecified (6) Thrombocytopenia Current Visit: No Status: Acute Assessment and plan: - Appears to be chronic - No signs of active bleeding - Monitor for now (7) Hypothyroid Current Visit: No Status: Chronic Assessment and plan: - Continue home levothyroxine. We will need dosage confirmation - We will repeat TSH in the morning. Qualifiers: Hypothyroidism type: unspecified Qualified Code(s): E03.9 - Hypothyroidism, unspecified (8) Chest pain Current Visit: No Status: Resolved Assessment and plan: - Atypical in nature. Troponin negative. Trend troponin. EKG without acute ischemic changes. Qualifiers: Chest pain type: unspecified Qualified Code(s): R07.9 - Chest pain, unspecified - Time Spent With Patient Total time spent is greater than 50% in coordination of care (as documented) at patient's floor/unit and/or counseling patient:
[2018-12-18] MEDS ORDERED: Furosemide 40 MG/4 ML VIAL IVP ONE (18:14)
[2018-12-18 18:24] LABS: BUN/Creatinine Ratio 17 (6-26); Blood Urea Nitrogen 22 mg/dL (8-23); Calcium 8.8 mg/dL (8.6-10.3); Carbon Dioxide 25 mEq/L (23-29); Chloride 115 mEq/L (98-107); Glucose 173 mg/dL (70-105); Osmolality,Calculated 313 (280-300); Sodium 148 mEq/L (136-145); eGFR For Non-African Americans 40 (> 60)
[2018-12-18 18:25] LABS: Troponin I < 0.03 ng/mL (< 0.04)
[2018-12-18] MEDS ORDERED: Apixaban 2.5 MG TABLET PO SCH (21:00)
[2018-12-19 06:10] LABS: Troponin I < 0.03 ng/mL (< 0.04)
[2018-12-19 06:20] LABS: Thyroid Stimulating Hormone 3.535 mcIU/mL (0.340-5.600)
[2018-12-19] MEDS: amLODIPine 5 MG TABLET PO SCH (08:12)
[2018-12-19] MEDS: Aspirin 81 MG TAB.CHEW PO SCH (08:13)
[2018-12-19] MEDS: Apixaban 5 MG TABLET PO SCH ×2 (08:13→21:01)
[2018-12-19] MEDS ORDERED: D5% in Water 1,000 ML IVC PRN (09:02)
[2018-12-19] MEDS ORDERED: Dextrose Gel 15 GM/37.5 ML TUBE PO PRN ×2 (09:02)
[2018-12-19] MEDS ORDERED: *HR* Dextrose 50 % in Water (Syg) 50 ML SYRINGE IVP PRN (09:02)
--- NOTE | 2018-12-19 14:07 | Cardiology Consult Note ---
Date of Encounter: 12/19/18 Time of Encounter: 13:20 Assessment and Plan Discussion w patient/family: The assessment and plan as outlined above was discussed with the patient and/or family members who expressed understanding and agreement. All questions were answered. Thank you for involving us in the care of your patient. Please call with any questions. History of Present Illness Consult date: 12/18/18 Requesting physician: Soy Nunez Consult reason: Bradycardia Chief complaint: shortness of breath History of present illness: Ms. Malagon is a 88 year old female who was presented from outside facility due to bradycardia. She has history of atrial fibrillation, HTN, diabetes, CKD stage III, hypothyroidism. Past Med Surg Social Fam HX - Past Medical History Medical history: atrial fibrillation, diabetes, hyperlipidemia, hypertension, thyroid disease, other Additional medical history: A-Fib, Breast CA Psychiatric history: anxiety - Past Surgical History Surgical History: breast surgery, hysterectomy Additional surgical history: Left mastectomy - Social History Smoking Status: Never smoker Smokeless Tobacco Status: No Alcohol use: none Drug use: none - Family History Mother History Unknown: Yes Medications and Allergies Amlodipine [Norvasc] 5 mg PO DAILY 06/15/15 [History] Aspirin 81 mg PO DAILY 06/15/15 [History] Glimepiride [Amaryl] 6 mg PO DAILY 06/15/15 [History] Apixaban [Eliquis] 2.5 mg PO BID 12/16/17 [History] Lisinopril [Zestril] 10 mg PO DAILY 12/16/17 [History] Levothyroxine [Levothyroxine Sodium] 137 mcg PO DAILY@0630 07/24/18 [History] Simvastatin [Zocor] 20 mg PO HS 07/24/18 [History] Allergy/AdvReac Type Severity Reaction Status Date / Time No Known Allergies Allergy Verified 12/16/17 21:40 All Systems Review: The remainder of the systems were reviewed and are negative Physical Examination Vital Signs, Last 4 Hours Temp Pulse Resp BP Pulse Ox 12/19/18 11:42 98.0 F 49 18 128/75 96 Results 12/18/18 17:51 Lab Results 12/18/18 12/19/18 17:51 05:06 Sodium 148 H Potassium 4.0 Chloride 115 H Carbon Dioxide 25 BUN 22 Creatinine 1.26 H Glucose 173 H Calcium 8.8 Troponin I < 0.03 < 0.03 TSH 3.535 Consult Discharge Plan - Plan Referrals: Benedicto Lynn DO [Primary Care Provider] -
[2018-12-19] MEDS: Insulin LISPRO 300 UNITS/3 ML VIAL SQ SCH ×3 (14:09→21:01)
--- NOTE | 2018-12-19 14:36 | Internal Med Progress Note ---
Hospitalist Progress Note - Encounter Date of Encounter: 12/19/18 Time of Encounter: 14:34 - Subjective Interval History: I have seen and evaluated the patient at bedside. she reports lightheadedness and shortness of breath with minimal exertion. denies chest pain. - Exam Vitals: Temp Pulse Resp BP Pulse Ox 98.0 F 49 18 128/75 96 12/19/18 11:42 12/19/18 11:42 12/19/18 11:42 12/19/18 11:42 12/19/18 11:42 Exam: Vitals: reviewed General: Morbidly obese, Alert and oriented x4. In no distress Skin: Normal color, no rash, no lesions. HEENT: EOM, pupils equal, round and reactive. Cardiovascular: Bradycardic, normal S1 & S2, no rubs, murmurs or gallops. Lungs: Clear to auscultation bilaterally, no wheezes or crackles. Abdomen: Obese Soft, non-tender, no rigidity. Extremities:No deformity, no edema or tenderness, no joint swelling or clubbing. Neurological: Normal cognition and motor skills. Rest of the physical exam is non contributory - Assessment and Plan (1) Hypothyroid Current Visit: No Status: Chronic Assessment and Plan: Continue levothyroxine 137mcg/PO daily (2) CHF (congestive heart failure) Current Visit: No Status: Acute Assessment and Plan: HFpEF. patient is euvolemic. Continue fluid restriction to 1.5 L a day. Daily weight. Will add furosemide 20 mg by mouth daily. (3) HTN (hypertension) Current Visit: Yes Status: Acute Assessment and Plan: Blood pressure is well controlled. Continue amlodipine 5 mg by mouth daily. Hold lisinopril. (4) HLD (hyperlipidemia) Current Visit: Yes Status: Acute Assessment and Plan: Continue simvastatin 20 mg by mouth daily. (5) Bradycardia Current Visit: Yes Status: Acute Assessment and Plan: Patient is scheduled for pacemaker insertion on Sunday. hold oral anticoagulant on Sunday morning. Continue telemetry monitoring. Cardiology recommendation appreciated. (6) Thrombocytopenia Current Visit: No Status: Acute (7) Atrial fibrillation Current Visit: Yes Status: Acute Assessment and Plan: will continue eliquis. will hold eliquis on Sunday on preparation for pacemaker insertion. DVT Prophylaxis: Patient is on Apixaban 5mg/PO BID due to A.fib - Summary of Assessment and Plan Summary of Assessment and Plan: Patient to remain in the hospital due to Bradycardia, scheduled for pacemaker placement on Sunday. - Time Spent with Patient Total time spent is greater than 50% in coordination of care (as documented) at patient's floor/unit and/or counseling patient: Greater than 35 minutes (45) Plan of Care Discussed with: patient (her family and the nurse.) Internal Medicine: Result - Labs CBC & Chem 7: 12/18/18 17:51 Labs: BMP 12/18/18 17:51 Sodium 148 H Potassium 4.0 Chloride 115 H Carbon Dioxide 25 BUN 22 Creatinine 1.26 H Glucose 173 H Calcium 8.8 Cardiac Enzymes 12/18/18 12/19/18 Range/Units 17:51 05:06 Troponin I < 0.03 < 0.03 (< 0.04) ng/mL - Impressions Impressions Echocardiogram 12/19/18 18:17 Impressions: Atrial fibrillation with slow ventricular response, heart rate 40s. LVEF 60%. Indeterminate diastolic function. Normal right ventricular structure and function. Bi-atrial enlargement. Mitral regurgitation by spectral Doppler, possibly moderate and eccentric. Mild-moderate tricuspid regurgitation. Mild-moderate pulmonic regurgitation. Moderate pulmonary hypertension. There is a small to moderate pericardial effusion present. There is no echocardiographic evidence of tamponade. Left Ventricular Wall Motion: Rest Echo Findings All wall segments showed normal motion. Findings: Study Quality * Technically adequate exam. ECG Findings * Atrial fibrillation with slow ventricular response, heart rate 40s. Left Ventricle * LVEF 60%. * Normal LV chamber size, wall thickness and function. * Indeterminate diastolic function. Right Ventricle * Normal right ventricular structure and function. Left Atrium * Severely dilated left atrium. Right Atrium * Moderately dilated right atrium. Aortic Valve * No aortic regurgitation. * Aortic valve not well visualized. * No aortic stenosis. Mitral Valve * Normal mitral valve structure. * No mitral stenosis. * Mitral regurgitation by spectral Doppler, possibly moderate and eccentric. Tricuspid Valve * Normal tricuspid valve structure. * Mild-moderate tricuspid regurgitation. * Estimated RA pressure is 3 mmHg. * Estimated RVSP is 53 mmHg. * Moderate pulmonary hypertension. Pulmonic Valve * Pulmonic valve is not well visualized. * No pulmonic stenosis. * Mild-moderate pulmonic regurgitation. Aorta * Normally sized aortic root. Pericardium * There is a small to moderate pericardial effusion present. * There is no echocardiographic evidence of tamponade. Pulmonary Artery * Pulmonary artery not well visualized. Interatrial Septum * No evidence of PFO by color Doppler. IVC * Normal IVC dimensions and inspiratory collapse. Consult Discharge Plan - Plan Referrals: Benedicto Lynn, [Primary Care Provider] - (1) Hypothyroid Qualifiers: Hypothyroidism type: unspecified Qualified Code(s): E03.9 - Hypothyroidism, unspecified (2) CHF (congestive heart failure) Qualifiers: Heart failure type: unspecified Heart failure chronicity: unspecified Qualified Code(s): I50.9 - Heart failure, unspecified (3) HTN (hypertension) Qualifiers: Hypertension type: essential hypertension Qualified Code(s): I10 - Essential (primary) hypertension (4) HLD (hyperlipidemia) Qualifiers: Hyperlipidemia type: unspecified Qualified Code(s): E78.5 - Hyperlipidemia, unspecified (7) Atrial fibrillation Qualifiers: Atrial fibrillation type: paroxysmal Qualified Code(s): I48.0 - Paroxysmal atrial fibrillation
--- NOTE | 2018-12-19 14:42 | Cardiology Consult Note ---
<Dee Dee Vaz - Last Filed: 12/19/18 14:27> Date of Encounter: 12/19/18 Time of Encounter: 13:00 Assessment and Plan (1) Bradycardia Current Visit: Yes Status: Acute Ms. Malagon has history of bradycardia, usually in the 50s. Recently it is d ecreasing into the 40s and 30s with symptoms of fatigue and shortness of breath. She is not on any medical agents contributing to her low heart rate. She has history of hypothyroidism and her TSH was within normal levels at this admission. Her echo shows preserved EF with bi-atrial enlargement. 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 She is on home eliquis. Given her significantly lower heart rate she does not require medications for rate control. Qualifiers: Atrial fibrillation type: paroxysmal Qualified Code(s): I48.0 - Paroxysmal atrial fibrillation Discussion w patient/family: The assessment and plan as outlined above was discussed with the patient and/or family members who expressed understanding and agreement. All questions were answered. Thank you for involving us in the care of your patient. Please call with any questions. History of Present Illness Consult date: 12/18/18 Requesting physician: Soy Nunez Consult reason: bradycardia Chief complaint: shortness of breath History of present illness: Ms. Malagon is a 88 year old female who was presented to the ED from outside facility due to onset of atrial fibrillation. She has history of atrial fibrillation, hypertension, diabetes, chronic kidney disease stage III, hypothyroidism. She has history of paroxysmal atrial fibrillation and follows with Dr. Foster outpatient. She is only one eliquis given her heart rate is always low. Yesterday she presented to the hospital for left sided chest pain. Troponin at the outside facility was negative. At presentation was was noted to have heart rate in the 30s and 40s. Her BNP was 126. Her CBC showed platelets of 102 with creatinine of 1.28. Per daughter Ms. Malagon becomes easily exhausted with physical activity. This morning she is resting in bed. Her rhythm is normal with heart rate of 48. She denies fever, chills, nausea, shortness of breath or chest pain at this time. Past Med Surg Social Fam HX - Past Medical History Medical history: atrial fibrillation, diabetes, hyperlipidemia, hypertension, thyroid disease, other Additional medical history: A-Fib, Breast CA Psychiatric history: anxiety - Past Surgical History Surgical History: breast surgery, hysterectomy Additional surgical history: Left mastectomy - Social History Smoking Status: Never smoker Smokeless Tobacco Status: No Alcohol use: none Drug use: none - Family History Mother History Unknown: Yes Medications and Allergies RX: Amlodipine [Norvasc] 5 mg PO DAILY 06/15/15 [History] RX: Aspirin 81 mg PO DAILY 06/15/15 [History] RX: Glimepiride [Amaryl] 6 mg PO DAILY 06/15/15 [History] RX: Apixaban [Eliquis] 2.5 mg PO BID 12/16/17 [History] RX: Lisinopril [Zestril] 10 mg PO DAILY 12/16/17 [History] RX: Levothyroxine [Levothyroxine Sodium] 137 mcg PO DAILY@0630 07/24/18 [History] RX: Simvastatin [Zocor] 20 mg PO HS 07/24/18 [History] Allergy/AdvReac Type Severity Reaction Status Date / Time No Known Allergies Allergy Verified 12/16/17 21:40 All Systems Review: The remainder of the systems were reviewed and are negative - Constitutional Constitutional: weakness, no chills, no fever(s) - EENT Nose, mouth and throat: no odynophagia, no sore throat - Cardiovascular Cardiovascular: dyspnea on exertion, no chest pain at rest, no chest pain with exertion, no dyspnea at rest, no orthopnea, no paroxysmal nocturnal dyspnea - Respiratory Respiratory: no cough, no dyspnea - Gastrointestinal Gastrointestinal: no abdominal pain, no dysphagia, no hematemesis, no hematochezia, no melena - Integumentary Integumentary: no erythema, no rash - Neurological Neurological: no numbness, no syncope Physical Examination Vital Signs, Last 4 Hours Temp Pulse Resp BP Pulse Ox 12/19/18 11:42 98.0 F 49 18 128/75 96 General: Conversant, No Apparent Distress HEENT: Atraumatic, Normocephaly, Mucus Membranes Moist Neck: Normal carotid pulses Cardiac: Normal S1 and S2, No Murmur, Other (bradycardic) Lungs: Normal Breath Sounds, No Wheeze, Rales, Rhonchi Neuro: Alert and responsive, No focal deficits noted Abdomen: Soft, Non-Tender Skin: No rashes noted on visualized skin Musculoskeletal: No Chest Wall Tenderness Extremities: Normal Pulses, Other (+1 pitting edema bilateral lower extremities ) Results 12/18/18 17:51 Lab Results 12/18/18 02 17:51 05:06 Sodium 148 H Potassium 4.0 Chloride 115 H Carbon Dioxide 25 BUN 22 Creatinine 1.26 H Glucose 173 H Calcium 8.8 Troponin I < 0.03 < 0.03 TSH 3.535 Consult Discharge Plan - Plan Referrals: Benedicto Lynn, DO [Primary Care Provider] - <Angel Corcoran - Last Filed: 12/19/18 15:52> Date of Encounter: 12/19/18 - Attending Attestation I examined this patient and my medical decision-making was reviewed with the Resident Physician. I agree with the documented findings, disposition and treatment plan as described except to the extent set forth below. Chronid AF with history of mild tachy-elisa. Has been having more symptomatic bradycardia recently. Will likely need pacemaker. Would hold eliquis in preparation. Assessment and Plan Discussion w patient/family: The assessment and plan as outlined above was discussed with the patient and/or family members who expressed understanding and agreement. All questions were answered. Thank you for involving us in the care of your patient. Please call with any questions. History of Present Illness History of present illness: Ms. Malagon is a 88 year old female All Systems Review: The remainder of the systems were reviewed and are negative Physical Examination Vital Signs, Last 4 Hours Pulse Ox 12/19/18 15:21 94 Results 12/18/18 17:51 Lab Results 12/18/18 12/19/18 17:51 05:06 Sodium 148 H Potassium 4.0 Chloride 115 H Carbon Dioxide 25 BUN 22 Creatinine 1.26 H Glucose 173 H Calcium 8.8 Troponin I < 0.03 < 0.03 TSH 3.535
[2018-12-19] MEDS: Nystatin POWDER 30 GM BOTTLE TP SCH (21:02)
[2018-12-20 07:06] LABS: Calcium 9.2 mg/dL (8.6-10.3); Potassium 3.9 mEq/L (3.5-5.1)
[2018-12-20] MEDS: Insulin LISPRO 300 UNITS/3 ML VIAL SQ SCH ×4 (08:40→21:22)
[2018-12-20] MEDS: Aspirin 81 MG TAB.CHEW PO SCH (08:58)
[2018-12-20] MEDS: amLODIPine 5 MG TABLET PO SCH (08:58)
[2018-12-20] MEDS: Furosemide 20 MG TABLET PO SCH (08:58)
[2018-12-20] MEDS: Apixaban 5 MG TABLET PO SCH (08:58)
[2018-12-20] MEDS: Nystatin POWDER 30 GM BOTTLE TP SCH ×2 (09:02→21:52)
--- NOTE | 2018-12-20 09:32 | Cardiology Progress Note ---
Date of Encounter: 12/20/18 Time of Encounter: 08:00 Assessment and Plan (1) Bradycardia Current Visit: Yes Status: Acute Ms. Malagon has history of bradycardia, usually in the 50s. This morning it is in the low 40s. Recently it is decreasing into the 40s and 30s with symptoms of fatigue and shortness of breath. She is not on any medical agents contributing to her low heart rate. She has history of hypothyroidism and her TSH was within normal levels at this admission. Her echo shows preserved EF with bi-atrial enlargement. 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 She is on home eliquis. Given her significantly lower heart rate she does not require medications for rate control. Qualifiers: Atrial fibrillation type: paroxysmal Qualified Code(s): I48.0 - Paroxysmal atrial fibrillation Discussion w patient/family: The assessment and plan as outlined above was discussed with the patient and/or family members who expressed understanding and agreement. All questions were answered. Thank you for involving us in the care of your patient. Please call with any questions. Subjective Interval history: Ms. Malagon was seen at bedside this morning. Her vitals were reviewed overnight and remained stable. This morning her heart rate was noted to be in the 40s. She was resting comfortably. She denied any chest, shortness of breath, fever, chills, nausea or emesis. Objective Vital Signs, Last 4 Hours Temp Pulse Resp BP Pulse Ox 12/20/18 08:00 97.6 F 50 18 145/56 98 General: Conversant, No Apparent Distress HEENT: Atraumatic, Normocephaly, Mucus Membranes Moist Neck: No JVD, Normal carotid pulses Cardiac: Normal S1 and S2, No Murmur, Other (bradycardic ) Lungs: Normal Breath Sounds, No Wheeze, Rales, Rhonchi Neuro: Alert and responsive, No focal deficits noted Abdomen: Soft, Non-Tender Skin: No rashes noted on visualized skin Musculoskeletal: No Chest Wall Tenderness Extremities: No Edema, Normal Pulses Results 12/20/18 06:20 Lab Results 12/20/18 06:20 Sodium 145 Potassium 3.9 Chloride 111 H Carbon Dioxide 28 BUN 26 H Creatinine 1.26 H Glucose 134 H Calcium 9.2 Consult Discharge Plan - Plan Referrals: Benedicto Lynn DO [Primary Care Provider] -
[2018-12-20] MEDS ORDERED: *HR* Heparin 5,000 UNIT/ML VIAL IVP PRN ×2 (15:44)
[2018-12-20] MEDS ORDERED: *HR* Heparin 5,000 UNIT/ML VIAL IVP ONE (15:44)
--- NOTE | 2018-12-20 15:47 | Internal Med Progress Note ---
Hospitalist Progress Note - Encounter Date of Encounter: 12/20/18 Time of Encounter: 15:45 - Subjective Interval History: I have seen and evaluated the patient at bedside. she reports feeling well, but still complaints of lightheadedness with ambulation. no chest pain. - Exam Vitals: Temp Pulse Resp BP Pulse Ox 97.9 F 47 19 149/72 99 12/20/18 11:20 12/20/18 11:20 12/20/18 11:20 12/20/18 11:20 12/20/18 11:20 Exam: Vitals: reviewed General: Morbidly obese, Alert and oriented x4. In no distress Cardiovascular: Bradycardic, normal S1 & S2, no rubs, murmurs or gallops. Lungs: Clear to auscultation bilaterally, no wheezes or crackles. Abdomen: Obese Soft, non-tender, no rigidity. NABS in all 4 quadrants Extremities: No edema Neurological: Normal cognition Rest of the physical exam is non contributory - Assessment and Plan (1) Bradycardia Current Visit: Yes Status: Acute Assessment and Plan: Symptomatic bradycardia. Scheduled for pacemaker insertion pending eliquis washout (2) Hypothyroid Current Visit: No Status: Chronic Assessment and Plan: ON levothyroxine 137 mcg/PO daily (3) CHF (congestive heart failure) Current Visit: No Status: Chronic Assessment and Plan: Patient is euvolemic. Continue furosemide 20 mg by mouth daily. Daily weight, fluid restriction to 1.5 L a day. (4) HTN (hypertension) Current Visit: Yes Status: Chronic Assessment and Plan: Blood pressure is controlled on amlodipine and furosemide. (5) HLD (hyperlipidemia) Current Visit: Yes Status: Chronic Assessment and Plan: Continue simvastatin 20 mg by mouth daily. (6) Thrombocytopenia Current Visit: No Status: Acute (7) Atrial fibrillation Current Visit: Yes Status: Chronic Assessment and Plan: Not on any rate controlling medications. Eliquis discontinue. Will add a heparin drip for anticoagulation. DVT Prophylaxis: started on a heparin drip due to a.fib - Summary of Assessment and Plan Summary of Assessment and Plan: Patient to remain in the hospital due to symptomatic bradycardia scheduled for pacemaker insertion . - Time Spent with Patient Total time spent is greater than 50% in coordination of care (as documented) at patient's floor/unit and/or counseling patient: Greater than 35 minutes (40) Plan of Care Discussed with: patient (her family at bedside and the nurse.) Internal Medicine: Result - Labs CBC & Chem 7: 12/20/18 06:20 Labs: BMP 12/20/18 06:20 Sodium 145 Potassium 3.9 Chloride 111 H Carbon Dioxide 28 BUN 26 H Creatinine 1.26 H Glucose 134 H Calcium 9.2 Consult Discharge Plan - Plan Referrals: Benedicto Lynn DO [Primary Care Provider] - ____ (2) Hypothyroid Qualifiers: Hypothyroidism type: unspecified Qualified Code(s): E03.9 - Hypothyroidism, unspecified (3) CHF (congestive heart failure) Qualifiers: Heart failure type: unspecified Heart failure chronicity: unspecified Qualified Code(s): I50.9 - Heart failure, unspecified (4) HTN (hypertension) Qualifiers: Hypertension type: essential hypertension Qualified Code(s): I10 - Essential (primary) hypertension (5) HLD (hyperlipidemia) Qualifiers: Hyperlipidemia type: unspecified Qualified Code(s): E78.5 - Hyperlipidemia, unspecified (7) Atrial fibrillation Qualifiers: Atrial fibrillation type: paroxysmal Qualified Code(s): I48.0 - Paroxysmal atrial fibrillation
[2018-12-20 17:01] LABS: Hematocrit 51.1 % (35.3-44.9); Hemoglobin 16.2 g/dL (11.5-15.4); Mean Corpuscular HGB Conc 31.7 g/dL (31.6-35.5); Mean Corpuscular Hemoglobin 29.6 pg (28.0-33.3); Mean Corpuscular Volume 93.2 fL (83.0-100.0); Platelet Count 112 K/mcL (140-400); Red Blood Count 5.48 M/mcL (3.82-4.97); Red Cell Distribution Width 13.8 % (11.5-14.5)
[2018-12-20 17:06] LABS: INR 1.6; Prothrombin Time 18.1 Seconds (9.4-12.1)
[2018-12-20 17:23] LABS: Heparin anti-factor XA UFH 1.95 IU/mL (0.30-0.70)
[2018-12-21 02:54] LABS: Mean Platelet Volume 12.4 fL (9.4-12.4); Red Cell Distribution Width 13.7 % (11.5-14.5)
[2018-12-21 02:56] LABS: Basophils # 0.1 K/mcL (0.0-0.2); Basophils % 0.7 %; Eosinophils # 0.2 K/mcL (0.0-0.6); Eosinophils % 2.1 %; Hematocrit 47.7 % (35.3-44.9); Hemoglobin 15.3 g/dL (11.5-15.4); Immature Granulocytes % 0.8 % (0-4); Immature Platelets 8.8 % (1.1-6.1); Lymphocytes # 0.9 K/mcL (0.6-4.6); Lymphocytes % 11.9 %; Mean Corpuscular HGB Conc 32.1 g/dL (31.6-35.5); Mean Corpuscular Hemoglobin 29.7 pg (28.0-33.3); Mean Corpuscular Volume 92.4 fL (83.0-100.0); Monocytes % 13.8 %; Neutrophils # 5.4 K/mcL (1.6-8.9); Red Blood Count 5.16 M/mcL (3.82-4.97); Segmented Neutrophils % 70.7 %
[2018-12-21 03:12] LABS: Calcium 8.8 mg/dL (8.6-10.3); Magnesium 1.9 mg/dL (1.6-2.6); Phosphorous 4.3 mg/dL (2.7-4.5); Potassium 3.9 mEq/L (3.5-5.1)
[2018-12-21 03:24] LABS: Monocytes # 1.1 K/mcL (0.0-1.3); Platelet Count 90 K/mcL (140-400)
[2018-12-21] MEDS: Insulin LISPRO 300 UNITS/3 ML VIAL SQ SCH ×4 (08:54→20:24)
[2018-12-21] MEDS: amLODIPine 5 MG TABLET PO SCH (08:57)
[2018-12-21] MEDS: Aspirin 81 MG TAB.CHEW PO SCH (08:58)
[2018-12-21] MEDS: Furosemide 20 MG TABLET PO SCH (08:58)
[2018-12-21] MEDS: Nystatin POWDER 30 GM BOTTLE TP SCH ×2 (09:00→20:34)
--- NOTE | 2018-12-21 12:16 | Event Note ---
Date of Encounter: 12/21/18 Time of Encounter: 12:15 - Cardiology Event Note 12 hr tele AVG HR 46, A-Fib with slow ventricular response. Per progress note 12/20/18--PPM insertion has been recommended, tentatively planned for Monday 12/25. Eliquis on hold. Will start heparin gtt given high [id number] (Age, HTN, Female, DM). High CVA risk. Peripherally follow. Will re-evaluate Sunday.
[2018-12-21] MEDS: Heparin 25,000 UNIT/500 ML D5W 25,000 UNIT/500 ML BAG IVC SCH ×2 (12:27→13:34)
--- NOTE | 2018-12-21 13:25 | Internal Med Progress Note ---
Hospitalist Progress Note - Encounter Date of Encounter: 12/21/18 Time of Encounter: 13:23 - Subjective Interval History: I have seen and evaluated the patient at bedside. patient reports feeling well. slight lightheadedness with ambulation. no chest pain - Exam Vitals: Temp Pulse Resp BP Pulse Ox 97.6 F 40 18 137/47 98 12/21/18 12:00 12/21/18 12:00 12/21/18 12:00 12/21/18 12:00 12/21/18 12:00 Exam: Vitals: reviewed General: Morbidly obese, AO x4. In no distress Cardiovascular: Bradycardic, normal S1 & S2, no rubs, murmurs or gallops. Lungs: Clear to auscultation bilaterally, no wheezes or crackles. Abdomen: Obese Soft, non-tender, no rigidity. NABS in all 4 quadrants Extremities: No edema, strength is 5/5 in the upper and lower extr b/l. Neurological: Normal cognition Rest of the physical exam is non contributory - Assessment and Plan (1) Bradycardia Current Visit: Yes Status: Acute Assessment and Plan: symptomatic. patient scheduled for pacemaker placement. (2) Hypothyroid Current Visit: No Status: Chronic Assessment and Plan: On levothyroxine 137mcg/PO daily (3) CHF (congestive heart failure) Current Visit: No Status: Chronic Assessment and Plan: HFpEF. patient on fluid restriction to 1.5 litters a day. on furosemide 20mg/PO daily. (4) HTN (hypertension) Current Visit: Yes Status: Chronic Assessment and Plan: BP controlled on amlodipine and furosemide (5) HLD (hyperlipidemia) Current Visit: Yes Status: Chronic Assessment and Plan: on simvastatin 20mg/PO daily (6) Thrombocytopenia Current Visit: No Status: Chronic (7) Atrial fibrillation Current Visit: Yes Status: Chronic Assessment and Plan: with slow ventricular response. high [id number] eliquis held on preparation for pacemaker placement started on a heparin drip cardiology recommendations appreciated DVT Prophylaxis: patient on a Heparin drip due to a.fib - Summary of Assessment and Plan Summary of Assessment and Plan: patient to remain in the hospital due to symptomatic bradycardia scheduled for pacemaker placement - Time Spent with Patient Total time spent is greater than 50% in coordination of care (as documented) at patient's floor/unit and/or counseling patient: Greater than 35 minutes (40) Plan of Care Discussed with: patient (the nurse and her family) Internal Medicine: Result - Labs CBC & Chem 7: 12/21/18 02:43 12/21/18 02:43 Labs: Short CBC 12/20/18 12/21/18 Range/Units 15:59 02:43 WBC 8.1 7.6 (4.3-11.1) K/mcL Hgb 16.2 H 15.3 (11.5-15.4) g/dL Hct 51.1 H 47.7 H (35.3-44.9) % Plt Count 112 L 90 L (140-400) K/mcL Neutrophils # 5.4 (1.6-8.9) K/mcL BMP 12/21/18 02:43 Sodium 144 Potassium 3.9 Chloride 110 H Carbon Dioxide 28 BUN 32 H Creatinine 1.12 Glucose 122 H Calcium 8.8 - ABG Interpretation ABG results: PT/INR, D-dimer PT 18.1 Seconds (9.4-12.1) H 12/20/18 15:59 Consult Discharge Plan - Plan Referrals: Benedicto Lynn DO [Primary Care Provider] - (2) Hypothyroid Qualifiers: Hypothyroidism type: unspecified Qualified Code(s): E03.9 - Hypothyroidism, unspecified (3) CHF (congestive heart failure) Qualifiers: Heart failure type: unspecified Heart failure chronicity: unspecified Qualified Code(s): I50.9 - Heart failure, unspecified (4) HTN (hypertension) Qualifiers: Hypertension type: essential hypertension Qualified Code(s): I10 - Essential (primary) hypertension (5) HLD (hyperlipidemia) Qualifiers: Hyperlipidemia type: unspecified Qualified Code(s): E78.5 - Hyperlipidemia, unspecified (7) Atrial fibrillation Qualifiers: Atrial fibrillation type: paroxysmal Qualified Code(s): I48.0 - Paroxysmal atrial fibrillation
[2018-12-22] MEDS: Heparin 25,000 UNIT/500 ML D5W 25,000 UNIT/500 ML BAG IVC SCH ×2 (08:01→09:13)
[2018-12-22] MEDS: Insulin LISPRO 300 UNITS/3 ML VIAL SQ SCH ×4 (08:01→21:28)
--- NOTE | 2018-12-22 08:15 | Event Note ---
Date of Encounter: 12/22/18 Time of Encounter: 08:10 - Cardiology Event Note Awaiting pacer for afib SVR. HR in the 40's, clinically stable. Tentatively planned for Monday 12/25. Eliquis on hold. On IV heparin gtt given high [id number] 5.
[2018-12-22] MEDS: amLODIPine 5 MG TABLET PO SCH (09:12)
[2018-12-22] MEDS: Aspirin 81 MG TAB.CHEW PO SCH (09:12)
[2018-12-22] MEDS: Furosemide 20 MG TABLET PO SCH (09:12)
[2018-12-22] MEDS: Nystatin POWDER 30 GM BOTTLE TP SCH ×2 (13:11→21:31)
--- NOTE | 2018-12-22 13:14 | Internal Med Progress Note ---
Hospitalist Progress Note - Encounter Date of Encounter: 12/22/18 Time of Encounter: 13:12 - Subjective Interval History: I have seen and evaluated the patient at bedside. she reports doing well. denies nausea, vomiting or lightheadedness - Exam Vitals: Temp Pulse Resp BP Pulse Ox 97.5 F L 44 17 142/75 92 12/22/18 11:57 12/22/18 11:57 12/22/18 11:57 12/22/18 11:57 12/22/18 11:57 Exam: Vitals: reviewed General: Morbidly obese, AO x4. In no distress Cardiovascular: Bradycardic, normal S1 & S2, no rubs, murmurs or gallops. Lungs: Clear to auscultation bilaterally, no wheezes or crackles. Abdomen: Obese Soft, non-tender, no rigidity. Extremities: No edema Neurological: Normal cognition Rest of the physical exam is non contributory - Assessment and Plan (1) Bradycardia Current Visit: Yes Status: Acute Assessment and Plan: patient is scheduled to have a pacemaker placed on Sunday. family decided to keep the patient in the hospital until the pac[place] the hospital if she feels like she needs to. (2) Hypothyroid Current Visit: No Status: Chronic Assessment and Plan: on levothyroxine 137 mcg/PO (3) CHF (congestive heart failure) Current Visit: No Status: Chronic Assessment and Plan: not on acute exacerbation. patient is euvolemic. continue fluids restriction to 2 litters a day. On furosemide 20mg/PO daily. (4) HTN (hypertension) Current Visit: Yes Status: Chronic Assessment and Plan: BP is controlled on furosemide and amlodipine (5) HLD (hyperlipidemia) Current Visit: Yes Status: Chronic Assessment and Plan: on simvastatin 20mg/PO daily (6) Thrombocytopenia Current Visit: No Status: Chronic (7) Atrial fibrillation Current Visit: Yes Status: Chronic Assessment and Plan: patient on a heparin drip for secondary stroke prevention. due to a high CHADSVASC score. DVT Prophylaxis: patient is on a heparin drip due to a.fib - Summary of Assessment and Plan Summary of Assessment and Plan: patient to remain in the hospital due to bradycardia. scheduled for pacemaker insertion Sunday - Time Spent with Patient Total time spent is greater than 50% in coordination of care (as documented) at patient's floor/unit and/or counseling patient: Greater than 35 minutes (40) Plan of Care Discussed with: patient (the nurse and her family) Internal Medicine: Result - Labs CBC & Chem 7: 12/21/18 02:43 12/21/18 02:43 - ABG Interpretation ABG results: PT/INR, D-dimer PT 18.1 Seconds (9.4-12.1) H 12/20/18 15:59 Consult Discharge Plan - Plan Referrals: Benedicto Lynn DO [Primary Care Provider] - (2) Hypothyroid Qualifiers: Hypothyroidism type: unspecified Qualified Code(s): E03.9 - Hypothyroidism, unspecified (3) CHF (congestive heart failure) Qualifiers: Heart failure type: unspecified Heart failure chronicity: unspecified Qualified Code(s): I50.9 - Heart failure, unspecified (4) HTN (hypertension) Qualifiers: Hypertension type: essential hypertension Qualified Code(s): I10 - Essential (primary) hypertension (5) HLD (hyperlipidemia) Qualifiers: Hyperlipidemia type: unspecified Qualified Code(s): E78.5 - Hyperlipidemia, unspecified (7) Atrial fibrillation Qualifiers: Atrial fibrillation type: paroxysmal Qualified Code(s): I48.0 - Paroxysmal a trial fibrillation
[2018-12-23] MEDS: Insulin LISPRO 300 UNITS/3 ML VIAL SQ SCH ×4 (07:39→21:04)
--- NOTE | 2018-12-23 09:04 | Cardiology Progress Note ---
Date of Encounter: 12/23/18 Time of Encounter: 08:20 Assessment and Plan (1) Bradycardia Current Visit: Yes Status: Acute Per Cardiology: Atrial fibrillation with slow ventricular response/tachybradycardia syndrome. Pending pacemaker insertion 12/25/2018. Clinically he remained stable. Anticoagulation of Eliquis on hold, currently on IV heparin drip d/t high risk of CVA. All questions answered. Discussed with primary service. Discussion w patient/family: The assessment and plan as outlined above was discussed with the patient and/or family members who expressed understanding and agreement. All questions were answered. Thank you for involving us in the care of your patient. Please call with any questions. Subjective Principal diagnosis: Tachybradycardia syndrome Interval history: Denies any concerns over night. Denies any chest pain, shortness of breath, palpitations, dizziness. Denies any active bleeding or blood loss. Reports she decided to stay for pacemaker this upcoming Sunday. Objective Vital Signs, Last 4 Hours Temp Pulse Resp BP Pulse Ox 12/23/18 07:35 97.7 F 66 18 144/81 97 General: Conversant, No Apparent Distress HEENT: Atraumatic, Normocephaly, Mucus Membranes Moist Neck: No JVD, Normal carotid pulses Cardiac: No Murmur, Other (Irregularly irregular) Lungs: Normal Breath Sounds, No Wheeze, Rales, Rhonchi Neuro: Alert and responsive, No focal deficits noted Abdomen: Soft, Non-Tender Skin: No rashes noted on visualized skin Musculoskeletal: No Chest Wall Tenderness Extremities: No Clubbing, No Cyanosis, No Edema, Normal Pulses Results 12/21/18 02:43 12/21/18 02:43 - EKG Interpretation EKG results cardiology: other (Remains A. fib with average heart rate the past 12 hours 48, lowest heart rate 38 and longest pause 3.4 seconds) Consult Discharge Plan - Plan Referrals: Benedicto Lynn DO [Primary Care Provider] -
[2018-12-23] MEDS: Furosemide 20 MG TABLET PO SCH (11:47)
[2018-12-23] MEDS: amLODIPine 5 MG TABLET PO SCH (11:47)
[2018-12-23] MEDS: Aspirin 81 MG TAB.CHEW PO SCH (11:47)
[2018-12-23] MEDS: Nystatin POWDER 30 GM BOTTLE TP SCH ×2 (11:49→21:03)
[2018-12-23] MEDS: Heparin 25,000 UNIT/500 ML D5W 25,000 UNIT/500 ML BAG IVC SCH (13:00)
--- NOTE | 2018-12-23 14:34 | Internal Med Progress Note ---
Hospitalist Progress Note - Encounter Date of Encounter: 12/23/18 Time of Encounter: 14:33 - Subjective Interval History: I have seen and evaluated the patient at bedside. patient voices no complain. denies lightheadedness, or shortness of breath. denies chest pain. - Exam Vitals: Temp Pulse Resp BP Pulse Ox 97.3 F L 52 18 127/71 97 12/23/18 11:13 12/23/18 11:13 12/23/18 11:13 12/23/18 11:13 12/23/18 11:13 Exam: Vitals: reviewed General: Morbidly obese, AO x4. In no distress Cardiovascular: Bradycardic, normal S1 & S2, no rubs, murmurs or gallops. Lungs: Clear to auscultation bilaterally, no wheezes or crackles. Abdomen: Obese Soft, non-tender, no rigidity. NABS in all 4 quadrants Extremities: No edema Neurological: Normal cognition Rest of the physical exam is non contributory - Assessment and Plan (1) Bradycardia Current Visit: Yes Status: Acute Assessment and Plan: patient is scheduled for pacemaker placement on Sunday (2) Hypothyroid Current Visit: No Status: Chronic Assessment and Plan: On levothyroxine 137mcg/PO daily (3) CHF (congestive heart failure) Current Visit: No Status: Chronic Assessment and Plan: euvolemic. on fluids restriction to 1.5 litters day. continue furosemide. (4) HTN (hypertension) Current Visit: Yes Status: Chronic Assessment and Plan: BP controlled on furosemide 20mg/PO daily. (5) HLD (hyperlipidemia) Current Visit: Yes Status: Chronic Assessment and Plan: on simvastatin 20mg/PO daily (6) Thrombocytopenia Current Visit: No Status: Chronic (7) Atrial fibrillation Current Visit: Yes Status: Chronic Assessment and Plan: with slow ventricular response. eliquis has been held. on a heparin drip. DVT Prophylaxis: patient on a heparin drip due to a.fib - Summary of Assessment and Plan Summary of Assessment and Plan: patient scheduled for pacemaker insertion. - Time Spent with Patient Total time spent is greater than 50% in coordination of care (as documented) at patient's floor/unit and/or counseling patient: Greater than 35 minutes (40) Plan of Care Discussed with: patient (and the nurse.) Internal Medicine: Result - Labs CBC & Chem 7: 12/21/18 02:43 12/21/18 02:43 - ABG Interpretation ABG results: PT/INR, D-dimer PT 18.1 Seconds (9.4-12.1) H 12/20/18 15:59 Consult Discharge Plan - Plan Referrals: Benedicto Lynn DO [Primary Care Provider] - (2) Hypothyroid Qualifiers: Hypothyroidism type: unspecified Qualified Code(s): E03.9 - Hypothyroidism, unspecified (3) CHF (congestive heart failure) Qualifiers: Heart failure type: unspecified Heart failure chronicity: unspecified Qualified Code(s): I50.9 - Heart failure, unspecified (4) HTN (hypertension) Qualifiers: Hypertension type: essential hypertension Qualified Code(s): I10 - Essential (primary) hypertension (5) HLD (hyperlipidemia) Qualifiers: Hyperlipidemia type: unspecified Qualified Code(s): E78.5 - Hyperlipidemia, unspecified (7) Atrial fibrillation Qualifiers: Atrial fibrillation type: paroxysmal Qualified Code(s): I48.0 - Paroxysmal atrial fibrillation
[2018-12-24 05:26] LABS: Basophils % 0.6 %; Eosinophils # 0.2 K/mcL (0.0-0.6); Eosinophils % 2.1 %; Hematocrit 47.2 % (35.3-44.9); Hemoglobin 15.5 g/dL (11.5-15.4); Lymphocytes # 1.1 K/mcL (0.6-4.6); Lymphocytes % 15.2 %; Mean Corpuscular HGB Conc 32.8 g/dL (31.6-35.5); Mean Corpuscular Hemoglobin 29.9 pg (28.0-33.3); Mean Corpuscular Volume 90.9 fL (83.0-100.0); Mean Platelet Volume 12.6 fL (9.4-12.4); Monocytes # 0.9 K/mcL (0.0-1.3); Monocytes % 12.6 %; Neutrophils # 4.8 K/mcL (1.6-8.9); Platelet Count 105 K/mcL (140-400); Red Blood Count 5.19 M/mcL (3.82-4.97); Red Cell Distribution Width 13.9 % (11.5-14.5); Segmented Neutrophils % 68.5 %
[2018-12-24] MEDS: Heparin 25,000 UNIT/500 ML D5W 25,000 UNIT/500 ML BAG IVC SCH ×3 (05:32→23:58)
[2018-12-24 05:39] LABS: Calcium 9.5 mg/dL (8.6-10.3); Magnesium 1.7 mg/dL (1.6-2.6); Phosphorous 3.1 mg/dL (2.7-4.5); Potassium 3.9 mEq/L (3.5-5.1)
--- NOTE | 2018-12-24 08:26 | Cardiology Progress Note ---
Date of Encounter: 12/24/18 Time of Encounter: 08:20 Assessment and Plan (1) Bradycardia Current Visit: Yes Status: Acute Per Cardiology: Atrial fibrillation with slow ventricular response/tachybradycardia syndrome. Pending pacemaker insertion 12/25/2018. Clinically remains stable. Heart rates in the 40s to 50s. Anticoagulation of Eliquis on hold, currently on IV heparin drip d/t high risk of CVA. All questions answered. Discussed with primary service. Discussion w patient/family: The assessment and plan as outlined above was discussed with the patient and/or family members who expressed understanding and agreement. All questions were answered. Thank you for involving us in the care of your patient. Please call with any questions. Subjective Principal diagnosis: Tachybradycardia syndrome Interval history: Denies any concerns over night. Denies any chest pain, shortness of breath, palpitations, dizziness. Denies any active bleeding or blood loss. Objective Vital Signs, Last 4 Hours Temp Pulse Resp BP Pulse Ox 12/24/18 07:35 97.7 F 53 17 152/74 93 12/24/18 05:44 98.7 F 47 17 140/73 95 General: Conversant, No Apparent Distress HEENT: Atraumatic, Normocephaly, Mucus Membranes Moist Neck: No JVD, Normal carotid pulses Cardiac: No Murmur, Other (Irregularly irregular) Lungs: Normal Breath Sounds, No Wheeze, Rales, Rhonchi Neuro: Alert and responsive, No focal deficits noted Abdomen: Soft, Non-Tender Skin: No rashes noted on visualized skin Musculoskeletal: No Chest Wall Tenderness Extremities: No Clubbing, No Cyanosis, No Edema, Normal Pulses Results 12/24/18 05:07 12/24/18 05:07 Lab Results Laboratory Tests 12/24/18 12/24/18 05:07 05:07 Hgb 15.5 H Hct 47.2 H Est GFR (Non-Af Amer) 43 L Active Medications Amlodipine Besylate (Norvasc) 5 mg PO DAILY RUFINA; Protocol Stop: 06/20/19 09:01 Last Admin: 12/23/18 11:47 Dose: 5 mg Aspirin (Aspirin) 81 mg PO DAILY RUFINA Stop: 06/20/19 09:01 Last Admin: 12/23/18 11:47 Dose: 81 mg Dextrose/Water (Dextrose 50% (Syg)) 25 ml IVP AD PRN PRN Reason: Hypoglycemia Stop: 06/20/19 09:03 Furosemide (Lasix) 20 mg PO DAILY RUFINA Stop: 06/21/19 09:01 Last Admin: 12/23/18 11:47 Dose: 20 mg Glucagon (Glucagen) 1 mg IM ONCE PRN PRN Reason: Hypoglycemia Stop: 06/20/19 09:03 Glucose (Gluctose) 15 gm PO ONCE PRN PRN Reason: Hypoglycemia Stop: 06/20/19 09:03 Glucose (Gluctose) 30 gm PO ONCE PRN PRN Reason: Hypoglycemia Stop: 06/20/19 09:03 Heparin Sodium (Porcine) (Heparin) 8,500 unit 70 unit/kg (8500 unit) IVP Q6HR PRN PRN Reason: SEE COMMENTS Stop: 06/21/19 15:45 Heparin Sodium (Porcine) (Heparin) 4,300 unit 35 unit/kg (4300 unit) IVP Q6H PRN PRN Reason: SEE COMMENTS Stop: 06/21/19 15:45 Dextrose (Dextrose 5%) 1,000 mls @ 100 mls/hr IVC .Q10H PRN PRN Reason: HYPOGLYCEMIA Stop: 06/20/19 09:03 Heparin Sodium/Dextrose (Heparin 25,000 Unit/500 Ml D5w) 25,000 unit in 500 mls @ 34.02 mls/hr IVC .[id number] RUFINA; Protocol Stop: 06/21/19 15:46 Last Admin: 12/24/18 05:32 Dose: Not Given Insulin Human Lispro (Humalog) 0 units SQ HS RUFINA; Protocol Stop: 06/20/19 21:01 Last Admin: 12/23/18 21:04 Dose: Not Given Insulin Human Lispro (Humalog) 0 units SQ TIDAC [facility]; Protocol Stop: 06/20/19 11:31 Last Admin: 12/23/18 18:05 Dose: 4 units Levothyroxine Sodium (Levothyroxine Sodium) 137 mcg PO 0630 RUFINA Stop: 06/20/19 06:31 Last Admin: 12/24/18 04:02 Dose: 137 mcg Nystatin (Nystop) 1 appl TP BID RUFINA Stop: 06/20/19 21:01 Last Admin: 12/23/18 21:03 Dose: 1 appl Simvastatin (Zocor) 20 mg PO HS RUFINA; Protocol Stop: 06/19/19 21:01 Last Admin: 12/23/18 21:03 Dose: 20 mg Consult Discharge Plan - Plan Referrals: Benedicto Lynn DO [Primary Care Provider] -
[2018-12-24] MEDS: amLODIPine 5 MG TABLET PO SCH (09:06)
[2018-12-24] MEDS: Furosemide 20 MG TABLET PO SCH (09:07)
[2018-12-24] MEDS: Nystatin POWDER 30 GM BOTTLE TP SCH ×2 (09:07→22:51)
[2018-12-24] MEDS: Aspirin 81 MG TAB.CHEW PO SCH (09:07)
[2018-12-24] MEDS: Insulin LISPRO 300 UNITS/3 ML VIAL SQ SCH ×4 (09:07→22:50)
--- NOTE | 2018-12-24 11:22 | Internal Med Progress Note ---
Hospitalist Progress Note - Encounter Date of Encounter: 12/24/18 Time of Encounter: 11:20 - Subjective Interval History: I have seen and evaluated the patient at bedside. she reports feeling well. denies lightheadedness, chest pain or shortness of breath - Exam Vitals: Temp Pulse Resp BP Pulse Ox 97.7 F 53 17 152/74 93 12/24/18 07:35 12/24/18 07:35 12/24/18 07:35 12/24/18 07:35 12/24/18 07:35 Exam: Vitals: reviewed General: Morbidly obese, AO x4. In no distress Cardiovascular: Bradycardic, normal S1 & S2, no rubs, murmurs or gallops. Lungs: Clear to auscultation bilaterally, no wheezes or crackles. Abdomen: Obese Soft, non-tender, no rigidity. NABS in all 4 quadrants Extremities: No edema Neurological: Normal cognition Rest of the physical exam is non contributory - Assessment and Plan (1) Bradycardia Current Visit: Yes Status: Acute Assessment and Plan: patient is scheduled for pacemaker insertion tomorrow morning due to symptomatic bradycardia. Started on cefazolin 2 g IV 1 time for prep (2) Hypothyroid Current Visit: No Status: Chronic Assessment and Plan: on levothyroxine home dose (3) CHF (congestive heart failure) Current Visit: No Status: Chronic Assessment and Plan: Not on acute exacerbation. Patient is euvolemic. Continue furosemide 20 mg by mouth daily. (4) HTN (hypertension) Current Visit: Yes Status: Chronic Assessment and Plan: Blood pressure controlled on amlodipine and furosemide. (5) HLD (hyperlipidemia) Current Visit: Yes Status: Chronic Assessment and Plan: Continue simvastatin. (6) Thrombocytopenia Current Visit: No Status: Chronic (7) Atrial fibrillation Current Visit: Yes Status: Chronic Assessment and Plan: With low ventricular response. Patient is on a heparin drip due to high CHADSVASC score DVT Prophylaxis: on a heparin drip due to a.fib - Summary of Assessment and Plan Summary of Assessment and Plan: patient scheduled for pacemaker insertion tomorrow - Time Spent with Patient Total time spent is greater than 50% in coordination of care (as documented) at patient's floor/unit and/or counseling patient: Greater than 35 minutes (40) Plan of Care Discussed with: patient (and the nurse) Internal Medicine: Result - Labs CBC & Chem 7: 12/24/18 05:07 12/24/18 05:07 Labs: Short CBC 12/24/18 Range/Units 05:07 WBC 7.0 (4.3-11.1) K/mcL Hgb 15.5 H (11.5-15.4) g/dL Hct 47.2 H (35.3-44.9) % Plt Count 105 L (140-400) K/mcL Neutrophils # 4.8 (1.6-8.9) K/mcL BMP 12/24/18 05:07 Sodium 143 Potassium 3.9 Chloride 108 H Carbon Dioxide 27 BUN 26 H Creatinine 1.18 Glucose 162 H Calcium 9.5 - ABG Interpretation ABG results: PT/INR, D-dimer PT 18.1 Seconds (9.4-12.1) H 12/20/18 15:59 Consult Discharge Plan - Plan Referrals: Benedicto Lynn, [Primary Care Provider] - (2) Hypothyroid Qualifiers: Hypothyroidism type: unspecified Qualified Code(s): E03.9 - Hypothyroidism, unspecified (3) CHF (congestive heart failure) Qualifiers: Heart failure type: unspecified Heart failure chronicity: unspecified Qualified Code(s): I50.9 - Heart failure, unspecified (4) HTN (hypertension) Qualifiers: Hypertension type: essential hypertension Qualified Code(s): I10 - Essential (primary) hypertension (5) HLD (hyperlipidemia) Qualifiers: Hyperlipidemia type: unspecified Qualified Code(s): E78.5 - Hyperlipidemia, unspecified (7) Atrial fibrillation Qualifiers: Atrial fibrillation type: paroxysmal Qualified Code(s): I48.0 - Paroxysmal atrial fibrillation
--- NOTE | 2018-12-24 14:40 | Event Note ---
Date of Encounter: 12/24/18 Time of Encounter: 13:45 - Cardiology Event Note Lengthy discussion with patient and family regarding pacemaker questions tomorrow. All questions answered. Patient and family verbalized understanding and agreed to plan.
[2018-12-25] MEDS: Insulin LISPRO 300 UNITS/3 ML VIAL SQ SCH ×4 (01:05→21:39)
[2018-12-25] MEDS: amLODIPine 5 MG TABLET PO SCH (07:30)
[2018-12-25] MEDS: Furosemide 20 MG TABLET PO SCH (07:30)
[2018-12-25] MEDS: Aspirin 81 MG TAB.CHEW PO SCH (07:30)
[2018-12-25 09:48] LABS: Mean Corpuscular Hemoglobin 29.5 pg (28.0-33.3)
[2018-12-25 09:49] LABS: Basophils % 0.5 %; Eosinophils # 0.1 K/mcL (0.0-0.6); Hematocrit 50.1 % (35.3-44.9); Hemoglobin 16.2 g/dL (11.5-15.4); Immature Granulocytes % 0.7 % (0-4); Lymphocytes # 0.9 K/mcL (0.6-4.6); Lymphocytes % 15.2 %; Mean Corpuscular HGB Conc 32.3 g/dL (31.6-35.5); Mean Corpuscular Volume 91.3 fL (83.0-100.0); Mean Platelet Volume 12.8 fL (9.4-12.4); Monocytes # 0.7 K/mcL (0.0-1.3); Monocytes % 12.1 %; Neutrophils # 4.2 K/mcL (1.6-8.9); Red Blood Count 5.49 M/mcL (3.82-4.97); Segmented Neutrophils % 69.5 %
[2018-12-25 09:52] LABS: Platelet Count 88 K/mcL (140-400)
[2018-12-25 09:58] LABS: Calcium 9.5 mg/dL (8.6-10.3); Potassium 3.9 mEq/L (3.5-5.1)
--- NOTE | 2018-12-25 11:00 | Event Note ---
Date of Encounter: 12/25/18 Time of Encounter: 09:00 - Cardiology Event Note Patient and family updated regarding pacer today. All questions answered. Plan for pacemaker this afternoon.
[2018-12-25] MEDS: Nystatin POWDER 30 GM BOTTLE TP SCH ×2 (11:10→21:37)
[2018-12-25] MEDS ORDERED: 0.9 % Sodium Chloride 500 ML ONE ×2 (13:02→13:23)
[2018-12-25] MEDS ORDERED: Water for inj. (sterile) 10 ML IV ONE (13:02)
--- NOTE | 2018-12-25 13:20 | Pre-Sedation Evaluation ---
Pre-sedation evaluation - Pre-sedation checklist Date of procedure: 12/25/18 Procedure: pacer placement Recent Vitals: Last Vital Signs Temp 97.5 F L 12/25/18 11:43 Pulse 47 12/25/18 11:43 Resp 17 12/25/18 11:43 BP 117/67 12/25/18 11:43 Pulse Ox 96 12/25/18 11:43 H&P (including ROS) documented in medical record: Yes Previous reaction to sedatives/anesthetics: No Dietary Status: NPO after Midnight Airway Assessment: Patient can open mouth completely, TMJ function normal, Micrognathia (under-bite, receding chin) absent Dentition: No loose teeth or bridges Possible difficult airway: No ASA Classification *see protocol: CLASS II-Mild systemic disease Plan of Care: Pt appropriate candidate for procedure/moderate/conscious sedation, Risks/benefits of procedure/sedation discussed w/ patient/family
[2018-12-25] MEDS ORDERED: *HR* FentaNYL (PF) 100 MCG/2 ML VIAL ONE (13:27)
[2018-12-25] MEDS ORDERED: *HR* Midazolam HCl 2 MG/2 ML VIAL ONE (13:27)
[2018-12-25] MEDS: Acetaminophen 325 MG TABLET PO PRN ×2 (16:33→22:46)
--- NOTE | 2018-12-25 18:27 | Internal Med Progress Note ---
Hospitalist Progress Note - Encounter Date of Encounter: 12/25/18 Time of Encounter: 11:00 - Subjective Interval History: Patient went for pacemaker placement earlier today and currently recovering - Exam Vitals: Temp Pulse Resp BP Pulse Ox 97.4 F L 61 18 143/83 96 12/25/18 16:02 12/25/18 16:02 12/25/18 16:02 12/25/18 16:02 12/25/18 16:02 Exam: Gen.: Nonacute distress, alert and oriented 3 ENT: Mucosal membranes moist Respiratory: Lungs are clear to auscultation bilaterally without any wheezing rhonchi or rales Cardiovascular: Normal S1 and S2 regular rate rhythm no murmurs rubs or gallops Abdomen: Soft, nontender and nondistended with positive bowel sounds Extremities: No lower extremity edema Skin: Normal color - Assessment and Plan (1) Bradycardia Current Visit: Yes Status: Acute Assessment and Plan: Patient status post pacemaker placement earlier today Plan for potential discharge on 12/26/18 per cardiology clearance (2) Hypothyroid Current Visit: No Status: Chronic Assessment and Plan: Continue home dose of levothyroxine (3) CHF (congestive heart failure) Current Visit: No Status: Chronic Assessment and Plan: Continue patient's home dose of furosemide (4) HTN (hypertension) Current Visit: Yes Status: Chronic Assessment and Plan: Blood pressure controlled on amlodipine and furosemide. (5) HLD (hyperlipidemia) Current Visit: Yes Status: Chronic Assessment and Plan: Continue simvastatin. (6) Atrial fibrillation Current Visit: Yes Status: Chronic Assessment and Plan: With low ventricular response. Patient is on a heparin drip due to high CHADSVASC score - Time Spent with Patient Total time spent is greater than 50% in coordination of care (as documented) at patient's floor/unit and/or counseling patient: Internal Medicine: Result - Labs CBC & Chem 7: 12/25/18 09:14 12/25/18 09:14 Labs: Short CBC 12/25/18 Range/Units 09:14 WBC 6.0 (4.3-11.1) K/mcL Hgb 16.2 H (11.5-15.4) g/dL Hct 50.1 H (35.3-44.9) % Plt Count 88 L (140-400) K/mcL Neutrophils # 4.2 (1.6-8.9) K/mcL BMP 12/25/18 09:14 Sodium 144 Potassium 3.9 Chloride 109 H Carbon Dioxide 28 BUN 25 H Creatinine 1.12 Glucose 156 H Calcium 9.5 - ABG Interpretation ABG results: PT/INR, D-dimer PT 18.1 Seconds (9.4-12.1) H 12/20/18 15:59 - Impressions Impressions Chest X-Ray 12/25/18 14:38 IMPRESSION: 1. Findings typical of congestive heart failure. 2. No pneumothorax following right side implantable cardiac device placement. 3. Calcific atherosclerosis aorta. 4. Cardiomegaly. D/ / Ibrahima Mendoza / Ibrahima Mendoza Interpreting Provider: Ibrahima Mendoza Consult Discharge Plan - Plan Referrals: Benedicot Lynn, [Primary Care Provider] - (2) Hypothyroid Qualifiers: Hypothyroidism type: unspecified Qualified Code(s): E03.9 - Hypothyroidism, unspecified (3) CHF (congestive heart failure) Qualifiers: Heart failure type: unspecified Heart failure chronicity: unspecified Qualified Code(s): I50.9 - Heart failure, unspecified (4) HTN (hypertension) Qualifiers: Hypertension type: essential hypertension Qualified Code(s): I10 - Essential (primary) hypertension (5) HLD (hyperlipidemia) Qualifiers: Hyperlipidemia type: unspecified Qualified Code(s): E78.5 - Hyperlipidemia, unspecified (6) Atrial fibrillation Qualifiers: Atrial fibrillation type: paroxysmal Qualified Code(s): I48.0 - Paroxysmal atrial fibrillation
[2018-12-25] MEDS: Heparin 25,000 UNIT/500 ML D5W 25,000 UNIT/500 ML BAG IVC SCH (21:38)
--- NOTE | 2018-12-26 04:32 | Event Note ---
Date of Encounter: 12/25/18 Time of Encounter: 20:05 Notified by pts. nurse Vania RN that the pt. had pacer placement today. Heparin gtt still on JAN but had not been running since 13:00. Pts. Eliquis not re-started yet. Paged Dr. Angel Corcoran who was ground crewman mission support for Cardiology to discuss pt. w/ recommendation to hold both heparin gtt and Eliquis for now. I appreciate the consult and recommendations as always. Nurse instructed to hold both and monitor the pt. closely and alert me immediately of any adverse changes.
[2018-12-26] MEDS: Insulin LISPRO 300 UNITS/3 ML VIAL SQ SCH ×2 (08:17→11:50)
[2018-12-26] MEDS: amLODIPine 5 MG TABLET PO SCH (08:20)
[2018-12-26] MEDS: Nystatin POWDER 30 GM BOTTLE TP SCH (08:20)
[2018-12-26] MEDS: Furosemide 20 MG TABLET PO SCH (08:20)
[2018-12-26] MEDS: Aspirin 81 MG TAB.CHEW PO SCH (08:20)
[2018-12-26 10:37] LABS: Eosinophils % 2.6 %
[2018-12-26 10:39] LABS: Basophils # 0.1 K/mcL (0.0-0.2); Basophils % 0.8 %; Eosinophils # 0.2 K/mcL (0.0-0.6); Hematocrit 50.1 % (35.3-44.9); Hemoglobin 15.9 g/dL (11.5-15.4); Immature Granulocytes % 1.1 % (0-4); Immature Platelets 9.8 % (1.1-6.1); Lymphocytes # 0.8 K/mcL (0.6-4.6); Lymphocytes % 11.6 %; Mean Corpuscular HGB Conc 31.7 g/dL (31.6-35.5); Mean Corpuscular Hemoglobin 29.3 pg (28.0-33.3); Mean Corpuscular Volume 92.3 fL (83.0-100.0); Mean Platelet Volume 12.4 fL (9.4-12.4); Monocytes # 0.7 K/mcL (0.0-1.3); Monocytes % 10.5 %; Neutrophils # 4.8 K/mcL (1.6-8.9); Red Blood Count 5.43 M/mcL (3.82-4.97); Red Cell Distribution Width 13.9 % (11.5-14.5); Segmented Neutrophils % 73.4 %
[2018-12-26 10:42] LABS: Platelet Count 86 K/mcL (140-400)
[2018-12-26 10:51] LABS: Calcium 9.4 mg/dL (8.6-10.3); Potassium 3.9 mEq/L (3.5-5.1)
--- NOTE | 2018-12-26 11:15 | Cardiology Progress Note ---
Date of Encounter: 12/26/18 Time of Encounter: 09:00 Assessment and Plan (1) Bradycardia Current Visit: Yes Status: Acute Per Cardiology: -Atrial fibrillation with slow ventricular response/tachybradycardia syndrome. -S/p permanent pacemaker yesterday. -Device check normal. -Chest x-ray post device and this am without pneumothorax. -Right chest wall dressing removed, steri-strips clean, dry, intact -Post pacemaker implantation education reviewed with patient. -Discussed and reviewed with Dr.John Corcoran, who recommends holding eliquis for one week, patient and family updated. -Cardiology will sign off, will arrange outpatient follow up. Discussion w patient/family: The assessment and plan as outlined above was discussed with the patient and/or family members who expressed understanding and agreement. All questions were answered. Thank you for involving us in the care of your patient. Please call with any questions. Discussed and reviewed with Dr.John Corcoran. Subjective Principal diagnosis: Tachybradycardia syndrome Interval history: Patient reports some chest soreness today. otherwise denies complaints. Denies shortness of breath. Objective Vital Signs Temperature 97.9 F 12/18/18 14:59 Pulse Rate 50 12/18/18 14:59 Respiratory Rate 19 12/18/18 14:59 Blood Pressure 151/68 12/18/18 14:59 O2 Sat by Pulse Oximetry 95 12/18/18 14:59 Temperature 97.6 F 12/26/18 07:04 Pulse Rate 61 12/26/18 07:04 Respiratory Rate 16 12/26/18 07:04 Blood Pressure 145/76 12/26/18 07:04 O2 Sat by Pulse Oximetry 90 12/26/18 07:04 General: Conversant, No Apparent Distress HEENT: Atraumatic, Normocephaly, Mucus Membranes Moist Neck: No JVD, Normal carotid pulses Cardiac: Reg Rate and Rhythm, Normal S1 and S2, No Murmur Lungs: Normal Breath Sounds, No Wheeze, Rales, Rhonchi Neuro: Alert and responsive, No focal deficits noted Abdomen: Soft, Non-Tender Skin: No rashes noted on visualized skin, Other (Right chest wall dressing removed. Steri-strips clean, dry, intact. ) Musculoskeletal: No Chest Wall Tenderness Extremities: No Clubbing, No Cyanosis, No Edema, Normal Pulses Results 12/26/18 10:09 12/26/18 10:09 Lab Results Impressions Chest X-Ray 12/25/18 14:38 IMPRESSION: 1. Findings typical of congestive heart failure. 2. No pneumothorax following right side implantable cardiac device placement. 3. Calcific atherosclerosis aorta. 4. Cardiomegaly. D/ / Ibrahima Mendoza / Ibrahima Mendoza Interpreting Provider: Ibrahima Mendoza Chest X-Ray 12/26/18 06:00 IMPRESSION: Small bilateral pleural effusions with adjacent atelectasis. D/ / Mandy Nunez MD / Mandy Nunez MD Interpreting Provider: Mandy Nunez MD Active Medications Acetaminophen (Tylenol) 650 mg PO Q6HR PRN PRN Reason: Pain Stop: 06/26/19 16:23 Last Admin: 12/25/18 22:46 Dose: 650 mg Amlodipine Besylate (Norvasc) 5 mg PO DAILY RUFINA; Protocol Stop: 06/20/19 09:01 Last Admin: 12/26/18 08:20 Dose: 5 mg Aspirin (Aspirin) 81 mg PO DAILY RUFINA Stop: 06/20/19 09:01 Last Admin: 12/26/18 08:20 Dose: 81 mg Dextrose/Water (Dextrose 50% (Syg)) 25 ml IVP AD PRN PRN Reason: Hypoglycemia Stop: 06/20/19 09:03 Furosemide (Lasix) 20 mg PO DAILY RUFINA Stop: 06/21/19 09:01 Last Admin: 12/26/18 08:20 Dose: 20 mg Glucagon (Glucagen) 1 mg IM ONCE PRN PRN Reason: Hypoglycemia Stop: 06/20/19 09:03 Glucose (Gluctose) 15 gm PO ONCE PRN PRN Reason: Hypoglycemia Stop: 06/20/19 09:03 Glucose (Gluctose) 30 gm PO ONCE PRN PRN Reason: Hypoglycemia Stop: 06/20/19 09:03 Dextrose (Dextrose 5%) 1,000 mls @ 100 mls/hr IVC .Q10H PRN PRN Reason: HYPOGLYCEMIA Stop: 06/20/19 09:03 Insulin Human Lispro (Humalog) 0 units SQ TIDAC [facility]; Protocol Stop: 06/27/19 07:31 Last Admin: 12/26/18 08:17 Dose: Not Given Insulin Human Lispro (Humalog) 0 units SQ HS [facility]; Protocol Stop: 06/27/19 21:01 Levothyroxine Sodium (Levothyroxine Sodium) 137 mcg PO 0630 RUFINA Stop: 06/20/19 06:31 Last Admin: 12/26/18 06:05 Dose: 137 mcg Nystatin (Nystop) 1 appl TP BID RUFINA Stop: 06/20/19 21:01 Last Admin: 12/26/18 08:20 Dose: 1 appl Simvastatin (Zocor) 20 mg PO HS [facility]; Protocol Stop: 06/19/19 21:01 Last Admin: 12/25/18 21:37 Dose: 20 mg Laboratory Tests 12/26/18 10:09 Hgb 15.9 H - Imaging and Cardiology Chest Xray: report reviewed - EKG Interpretation EKG results cardiology: other (Telemetry reviewed with average HR previous 12 ho urs noted to be 60, paced rhythm.) Consult Discharge Plan - Plan Referrals: Benedicto Lynn DO [Primary Care Provider] - 12/31/18 1:00 pm (Please follow up as schedule...)
[2018-12-26 11:27] VITALS: BP 116/65
--- NOTE | 2018-12-26 11:51 | Discharge Summary ---
- NOTES TO OUTPATIENT PROVIDER Notes to Outpatient Provider: Do not take Eliquis for one week; follow-up with cardiology in one week Orders not resulted at time of discharge: Pending orders 12/25/18 08:26 CL Insert Permanent Pacemaker [CL] Routine Date of Encounter: 12/26/18 Time of Encounter: 11:00 - Discharge Diagnosis (1) Bradycardia Priority: Primary Status: Acute (2) Hypothyroid Priority: Secondary Status: Chronic Qualifiers: Hypothyroidism type: unspecified Qualified Code(s): E03.9 - Hypothyroidism, unspecified (3) CHF (congestive heart failure) Priority: Secondary Status: Chronic Qualifiers: Heart failure type: unspecified Heart failure chronicity: unspecified Qualified Code(s): I50.9 - Heart failure, unspecified (4) HTN (hypertension) Priority: Secondary Status: Chronic Qualifiers: Hypertension type: essential hypertension Qualified Code(s): I10 - Essential (primary) hypertension (5) HLD (hyperlipidemia) Priority: Secondary Status: Chronic Qualifiers: Hyperlipidemia type: unspecified Qualified Code(s): E78.5 - Hyperlipidemia, unspecified (6) Atrial fibrillation Priority: Secondary Status: Chronic Qualifiers: Atrial fibrillation type: paroxysmal Qualified Code(s): I48.0 - Paroxysmal atrial fibrillation Hospital course: Patient is an 88-year-old female with past medical history significant for A. fib, hypertension, diabetes, chronic kidney disease stage III, hypothyroidism is transferred with complaints of shortness of breath and chest pain. In the ER, patient was found to have atrial fibrillation on EKG without any ischemic changes; troponins were negative. Patient's heart rate was in the high 30s and 40s. Patient remained hemodynamically and was transferred to [facility] as she wanted to follow our [facility] hospital stay cardiology was consulted with recommendation for pacemaker placement which was done on 10/24/19. Patient will be discharged with instructions not to take Eliquis for one week and to follow-up with cardiology in one week. - Time Spent with Patient Total time spent providing and/or coordinating discharge services: Less than 30 minutes - Discharge Medications Home Medications: Amlodipine [Norvasc] 5 mg PO DAILY 06/15/15 [History] Aspirin 81 mg PO DAILY 06/15/15 [History] Glimepiride [Amaryl] 6 mg PO DAILY 06/15/15 [History] Lisinopril [Zestril] 10 mg PO DAILY 12/16/17 [History] Levothyroxine [Levothyroxine Sodium] 137 mcg PO DAILY@0630 07/24/18 [History] Simvastatin [Zocor] 20 mg PO HS 07/24/18 [History] Allergies/Adverse Reactions: Allergy/AdvReac Type Severity Reaction Status Date / Time No Known Allergies Allergy Verified 12/16/17 21:40 Date of admission: 12/18/18 18:39 Primary care physician: Benedicto Lynn DO Consults: 12/18/18 17:14 Consult to Cardiology [CONS] Routine Comment: Consulting Provider: Cardiology Mary Jane Reason for Consult: bradycardia Call Completed: Yes 12/20/18 09:16 Consult to Nurse Navigator [CONS] Routine Comment: chf - Constitutional Vitals: Temp Pulse Resp BP Pulse Ox 97.5 F L 60 16 116/65 91 12/26/18 11:26 12/26/18 11:26 12/26/18 11:26 12/26/18 11:26 12/26/18 11:26 Exam: Gen.: Nonacute distress, alert and oriented 3 Skin: Normal color - Patient Status Disposition: Home, Self-Care Condition: Fair - Discharge Instructions Instructions: Pacemaker (DC), Chronic Hypertension (DC), Bradycardia (DC) Follow Up With: Angel Corcoran MD [Partnered Physician] - (Cardio office will call for an appointment) Benedicto Lynn DO [Primary Care Provider] - 12/31/18 1:00 pm (Please follow up as schedule...)
[2018-12-26] MEDS ORDERED: Insulin LISPRO 300 UNITS/3 ML VIAL SQ SCH (21:00)
== END 2018-12-26 13:04 | disposition home or self-care (01) | DRG 243 ==
LOC: 2ANU → SUATTDRO 18:39
PROVIDERS: ADMIT Internal Medicine; ATTEND Hospitalist

== ENCOUNTER 2019-07-28 10:35 | Inpatient (IN) ==
[2019-07-28] MEDS ORDERED: Naloxone 0.4 MG/ML INJ IVP PRN (13:21)
[2019-07-28] MEDS ORDERED: Ondansetron 4 MG/2 ML VIAL IVP PRN (13:21)
[2019-07-28] MEDS ORDERED: *HR* Dextrose 50 % in Water (Syg) 50 ML SYRINGE IVP PRN (13:25)
[2019-07-28] MEDS ORDERED: D5% in Water 1,000 ML IVC PRN (13:25)
[2019-07-28] MEDS ORDERED: Furosemide 40 MG/4 ML VIAL IVP ONE (13:25)
[2019-07-28] MEDS ORDERED: Dextrose Gel 15 GM/37.5 ML TUBE PO PRN ×2 (13:25)
[2019-07-28] MEDS ORDERED: Ipratropium/Albuterol Neb 3 ML IH PRN (13:27)
--- NOTE | 2019-07-28 13:43 | Cardiology Consult Note ---
Date of Encounter: 07/28/19 Time of Encounter: 13:40 Assessment and Plan (1) Pericardial effusion Current Visit: No Status: Acute Moderate pericardial effusion and small layering bilateral pleural effusion seen on chest CT. Prior echo in 2018 showed small pericardial effusion. TTE 06/2018- LVEF 60-65%. Normal right ventricular structure and function. Aorta. Normally sized aortic root. Pericardium There is a small pericardial effusion present.There is no echocardiographic evidence of tamponade. BNP 97. Hemodynamically stable. No indication for urgent intervention. Continue to monitor. Repeat TTE. (2) Atrial fibrillation Current Visit: No Status: Chronic H/o PAF. 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 Currently paced on telemetry. Qualifiers: Atrial fibrillation type: paroxysmal Qualified Code(s): I48.0 - Paroxysmal atrial fibrillation (3) Pacemaker Current Visit: Yes Status: Acute Pacemaker in place for SSS. Discussion w patient/family: The assessment and plan as outlined above was discussed with the patient and/or family members who expressed understanding and agreement. All questions were answered. Thank you for involving us in the care of your patient. Please call with any questions. History of Present Illness Consult date: 07/28/19 Requesting physician: Igor Charlton Consult reason: Pericardial effusion Chief complaint: SOB, cough, congestion for 3 weeks. History of present illness: Ms. Malagon is a 89 year old female with past medical history of PPM placement for SSS 12/2018, atrial fibrillation anticoagulated on eliquis, and obesity. She presents with increasing JC. C/o SOB, cough, chest congestion, and intermittent dizziness for the past three weeks. She was treated for bronchitis at previous ER visit. Today she underwent out-pt CT of her chest and had labwork drawn. When she walking out to leave she became so SOB she felt like she was going to pass out. She was taken to the ED and oxygen was applied and she was given IV lasix. She walked to the bathroom prior to my exam and became very SOB. Cardiology consulted for moderate pericardial effusion seen on CT scan. Past Med Surg Social Fam HX - Past Medical History Medical history: atrial fibrillation, diabetes, hyperlipidemia, hypertension, thyroid disease, other (small pericardial effusion) Additional medical history: A-Fib, Breast CA Psychiatric history: anxiety - Past Surgical History Surgical History: hysterectomy, breast surgery Additional surgical history: Left mastectomy - Social History Smoking Status: Never smoker Smokeless Tobacco Status: No Alcohol use: none Drug use: none Medications and Allergies Aspirin 81 mg PO DAILY 06/15/15 [History] Glimepiride [Amaryl] 4 mg PO DAILY 06/15/15 [History] Lisinopril [Zestril] 5 mg PO DAILY 12/16/17 [History] Levothyroxine [Synthroid] 137 mcg PO DAILY@0630 07/24/18 [History] Simvastatin [Zocor] 20 mg PO HS 07/24/18 [History] Acetaminophen [8Hr Arthritis Pain] 650 mg PO TID PRN 07/21/19 [History] Albuterol Sulfate [Ventolin Hfa] 2 puff IH Q4H PRN 07/21/19 [History] Apixaban [Eliquis] 2.5 mg PO BID 07/21/19 [History] Guaifenesin/Codeine Phosphate [Guaifenesin-Codeine Syrup] 118 ml PO Q4H 07/21/19 [History] Minocycline [Minocin] 50 mg PO DAILY 07/21/19 [History] Nystatin POWDER [Nystop] 1 appl TP BID 07/21/19 [History] hydroCHLOROthiazide [Hydrochlorothiazide] 12.5 mg PO DAILY #7 tablet 07/21/19 [Rx] Allergy/AdvReac Type Severity Reaction Status Date / Time No Known Allergies Allergy Verified 07/21/19 16:38 All Systems Review: The remainder of the systems were reviewed and are negative Physical Examination Vital Signs, Last 4 Hours Temp Pulse Resp BP Pulse Ox 07/28/19 12:01 97.8 F 61 20 128/77 98 General: Conversant, No Apparent Distress HEENT: Atraumatic, Normocephaly, Mucus Membranes Moist Neck: No JVD, Normal carotid pulses Cardiac: Reg Rate and Rhythm, Normal S1 and S2, No Murmur Lungs: Normal Breath Sounds, No Wheeze, Rales, Rhonchi Neuro: Alert and responsive, No focal deficits noted Abdomen: Soft, Non-Tender Skin: No rashes noted on visualized skin Musculoskeletal: No Chest Wall Tenderness Extremities: No Clubbing, No Cyanosis, No Edema, Normal Pulses Results - Imaging and Cardiology Echo: report reviewed - EKG Interpretation EKG results cardiology: personally reviewed Consult Discharge Plan - Plan Referrals: Benedicto Lynn DO [Primary Care Provider] - HAS-BLED Score - Score Elderly: Age>65 years Medication usage predisposing to bleeding: Antiplatelet agents, NSAIDs, Anticoagulants Score: 2
[2019-07-28 14:07] LABS: Basophils # 0.1 K/mcL (0.0-0.2); Basophils % 0.6 %; Eosinophils # 0.1 K/mcL (0.0-0.6); Hematocrit 49.3 % (35.3-44.9); Hemoglobin 15.7 g/dL (11.5-15.4); Immature Granulocytes % 0.7 % (0-4); Lymphocytes # 1.1 K/mcL (0.6-4.6); Lymphocytes % 11.1 %; Mean Corpuscular HGB Conc 31.8 g/dL (31.6-35.5); Mean Corpuscular Hemoglobin 30.3 pg (28.0-33.3); Mean Platelet Volume 12.2 fL (9.4-12.4); Monocytes # 1.3 K/mcL (0.0-1.3); Monocytes % 13.5 %; Neutrophils # 7.2 K/mcL (1.6-8.9); Platelet Count 127 K/mcL (140-400); Red Blood Count 5.19 M/mcL (3.82-4.97); Red Cell Distribution Width 13.8 % (11.5-14.5); Segmented Neutrophils % 73.1 %; White Blood Count 9.8 K/mcL (4.3-11.1)
--- NOTE | 2019-07-28 14:18 | Internal Med History&Physical ---
Date of Encounter: 07/28/19 Time of Encounter: 13:40 Internal Medicine - H&P: HPI Chief complaint: Dyspnea on exertion Admitted From: Hospital to Hospital Transfer History of present illness: Ms. Malagon is a 89 year old female with history of atrial fibrillation status post pacemaker insertion, heart failure with preserved EF, moderate pulmonary hypertension, morbid obesity, CKD, diabetes, hypertension, who was transferred from [facility] due to the CT finding of moderate pericardial effusion. Her story goes back ~ 3 weeks ago when she developed progressive dyspnea on exertion. She was first diagnosed with viral bronchitis and was prescribed cough syrup. About a week ago, she went to [facility] as her symptoms were unresolving and was given a course of doxycycline and hydrochlorothiazide. Her JC continues to worsen and her primary care doctor ordered a set of bloodwork and CT chest today which was done on the morning of the admission. Following the CT scan, she went extremely short of breath coming off the CT table hence was br ought to [facility] for further evaluation. Denies any chest pain, cough, sputum production, fever/chills, nausea/vomiting, diaphoresis, or lightheadedness. No orthopnea, PND, or leg swelling. Denies any sick contacts. No abdominal pain, change in bowel habits, dysuria, joint pain, or rash. In the ED, she was noted to be hypoxic at 88% on room air. Otherwise, she was afebrile and hemodynamically stable. Labwork showed creatinine 1.43 (baseline around 1.2) and otherwise normal troponin, BNP, electrolytes. CT chest demonstrated moderate pericardial effusion in addition to small bilateral pleural effusions. EKG showed paced rhythm without concordant STT changes. Patient was transferred to [facility] with cardiology consultation. Past Med Surg Social Fam HX - Past Medical History Medical history: atrial fibrillation, CHF, diabetes, hyperlipidemia, hypertension, renal disease, thyroid disease, other (small pericardial effusion) Additional medical history: Breast CA Psychiatric history: anxiety - Past Surgical History Surgical History: hysterectomy, breast surgery Additional surgical history: Left mastectomy - Social History Smoking Status: Never smoker Smokeless Tobacco Status: No Alcohol use: none Drug use: none - Additional Family History Additional family history: No family history of premature CAD Internal Medicine - H&P: Meds Aspirin 81 mg PO DAILY 06/15/15 [History] Glimepiride [Amaryl] 4 mg PO DAILY 06/15/15 [History] Lisinopril [Zestril] 5 mg PO DAILY 12/16/17 [History] Levothyroxine [Synthroid] 137 mcg PO DAILY@0630 07/24/18 [History] Simvastatin [Zocor] 20 mg PO HS 07/24/18 [History] Acetaminophen [8Hr Arthritis Pain] 650 mg PO TID PRN 07/21/19 [History] Albuterol Sulfate [Ventolin Hfa] 2 puff IH Q4H PRN 07/21/19 [History] Apixaban [Eliquis] 2.5 mg PO BID 07/21/19 [History] Guaifenesin/Codeine Phosphate [Guaifenesin-Codeine Syrup] 118 ml PO Q4H 07/21/19 [History] Minocycline [Minocin] 50 mg PO DAILY 07/21/19 [History] Nystatin POWDER [Nystop] 1 appl TP BID 07/21/19 [History] hydroCHLOROthiazide [Hydrochlorothiazide] 12.5 mg PO DAILY #7 tablet 07/21/19 [Rx] Allergy/AdvReac Type Severity Reaction Status Date / Time No Known Allergies Allergy Verified 07/21/19 16:38 All Systems PM: A 10-system review of systems was performed and is negative for pertinent findings except as documented above in the HPI. - Constitutional Vitals: Temp Pulse Resp BP Pulse Ox 97.8 F 61 20 128/77 98 07/28/19 12:01 07/28/19 12:01 07/28/19 12:01 07/28/19 12:01 07/28/19 12:01 Exam: General: Alert and oriented, not in acute distress. HEENT:EOMI, pupils equal, round and reactive. Cardiovascular: Distant heart sounds, unable to appreciate JVD due to her body habitus Lungs: mostly clear to auscultation with minimal scattered rales at the lung bases bilaterally Abdomen:Soft, non-tender, no rigidity. Extremities:No deformity or swelling Neurological:Normal cognition and motor skills. Non-focal Skin:Normal color, no rash, no lesions. Pulses:Carotid and radial pulses normal +2. Rest of the physical exam is non contributory Internal Med - H&P Results - Labs CBC & Chem 7: 07/28/19 13:47 Labs: Short CBC 07/28/19 Range/Units 13:47 WBC 9.8 (4.3-11.1) K/mcL Hgb 15.7 H (11.5-15.4) g/dL Hct 49.3 H (35.3-44.9) % Plt Count 127 L (140-400) K/mcL Neutrophils # 7.2 (1.6-8.9) K/mcL - Assessment and Plan (1) Acute respiratory failure with hypoxia Current Visit: Yes Status: Acute Assessment and plan: 88% on RA at the time of presentation CT findings compatible with moderate pericardial and bilateral small pleural effusions trial of IV lasix 40mg, monitor I&O (2) Pericardial effusion Current Visit: Yes Status: Acute Assessment and plan: CT scan done this morning showed moderate sized pericardial effusion trial of lasix as above echocardiogram trend troponin, check TSH and respiratory viral panel cardiology consulted (3) CHF (congestive heart failure) Current Visit: Yes Status: Acute Assessment and plan: associated with moderate pericardial effusion diuresis and check echocardiogram as above telemetry, trend troponin to rule out ACS cardiology consulted Qualifiers: Heart failure type: diastolic Heart failure chronicity: acute on chronic Qualified Code(s): I50.33 - Acute on chronic diastolic (congestive) heart fa ilure (4) Atrial fibrillation Current Visit: No Status: Chronic Assessment and plan: Resume apixaban Qualifiers: Atrial fibrillation type: paroxysmal Qualified Code(s): I48.0 - Paroxysmal atrial fibrillation (5) Diabetes Current Visit: No Status: Chronic Assessment and plan: hold off on Amaryl low dose sliding scale Qualifiers: Diabetes mellitus type: type 2 Diabetes mellitus [facility] insulin use: without net mender use Diabetes mellitus complication status: without complication Qualified Code(s): E11.9 - Type 2 diabetes mellitus without complications (6) HTN (hypertension) Current Visit: No Status: Chronic Assessment and plan: Resume home meds Qualifiers: Hypertension type: essential hypertension Qualified Code(s): I10 - Essential (primary) hypertension (7) Hypothyroid Current Visit: No Status: Chronic Assessment and plan: Check TSH Continue home dose of levothyroxine Qualifiers: Hypothyroidism type: unspecified Qualified Code(s): E03.9 - Hypothyroidism, unspecified (8) DVT prophylaxis Current Visit: No Status: Acute Assessment and plan: On apixaban - Time Spent With Patient Total time spent is greater than 50% in coordination of care (as documented) at patient's floor/unit and/or counseling patient: Greater than 35 minutes
[2019-07-28 14:25] LABS: Calcium 9.5 mg/dL (8.6-10.3); Potassium 4.2 mEq/L (3.5-5.1)
[2019-07-28] MEDS ORDERED: Insulin LISPRO 300 UNITS/3 ML VIAL SQ SCH (18:00)
[2019-07-28] MEDS: Apixaban 2.5 MG TABLET PO SCH (20:21)
[2019-07-28] MEDS: Insulin LISPRO 300 UNITS/3 ML VIAL SQ SCH (20:22)
[2019-07-28 20:52] LABS: Adenovirus Not Detected (Not Detect); Bordetella Pertussis Not Detected (Not Detect); Chlamydophila pneumoniae Not Detected (Not Detect); Coronavirus 229E Not Detected (Not Detect); Coronavirus HKU1 Not Detected (Not Detect); Coronavirus NL63 Not Detected (Not Detect); Coronavirus OC43 Not Detected (Not Detect); Human Metapneumovirus Not Detected (Not Detect); Human Rhinovirus/Enterovirus Not Detected (Not Detect); Influenza A Subtype 2009 H1 Not Detected (Not Detect); Influenza A Untypeable Not Detected (Not Detect); Influenza B Not Detected (Not Detect); Mycoplasma pneumoniae Not Detected (Not Detect); Parainfluenza Virus 1 Not Detected (Not Detect); Parainfluenza Virus 2 Not Detected (Not Detect); Parainfluenza Virus 3 Not Detected (Not Detect); Parainfluenza Virus 4 Not Detected (Not Detect); Respiratory Syncytial Virus Not Detected (Not Detect)
[2019-07-29 02:52] LABS: Basophils # 0.1 K/mcL (0.0-0.2); Basophils % 0.6 %; Eosinophils # 0.2 K/mcL (0.0-0.6); Eosinophils % 1.8 %; Hematocrit 51.5 % (35.3-44.9); Immature Granulocytes % 0.9 % (0-4); Lymphocytes # 1.3 K/mcL (0.6-4.6); Lymphocytes % 14.3 %; Mean Corpuscular HGB Conc 31.1 g/dL (31.6-35.5); Mean Corpuscular Hemoglobin 30.6 pg (28.0-33.3); Mean Corpuscular Volume 98.5 fL (83.0-100.0); Monocytes # 1.3 K/mcL (0.0-1.3); Monocytes % 14.7 %; Neutrophils # 6.1 K/mcL (1.6-8.9); Platelet Count 105 K/mcL (140-400); Red Blood Count 5.23 M/mcL (3.82-4.97); Red Cell Distribution Width 13.8 % (11.5-14.5); Segmented Neutrophils % 67.7 %
[2019-07-29 03:13] LABS: Calcium 9.5 mg/dL (8.6-10.3); Magnesium 1.7 mg/dL (1.6-2.6); Potassium 4.1 mEq/L (3.5-5.1)
[2019-07-29] MEDS: Insulin LISPRO 300 UNITS/3 ML VIAL SQ SCH ×4 (09:22→21:33)
[2019-07-29] MEDS: Aspirin 81 MG TAB.CHEW PO SCH (09:23)
[2019-07-29] MEDS: Apixaban 2.5 MG TABLET PO SCH ×3 (09:23→21:34)
[2019-07-29] MEDS ORDERED: Benzonatate 100 MG CAPSULE PO PRN (10:40)
--- NOTE | 2019-07-29 10:40 | Internal Med Progress Note ---
Hospitalist Progress Note - Encounter Date of Encounter: 07/29/19 Time of Encounter: 09:00 - Subjective Interval History: Reports unchanged dyspnea on exertion. No chest pain or palpitation however. Denies any lower limb swelling. Continues to have nonproductive cough, no fever/chills. - Exam Vitals: Temp Pulse Resp BP Pulse Ox 98.7 F 65 20 120/75 95 07/29/19 07:22 07/29/19 07:22 07/29/19 07:22 07/29/19 07:22 07/29/19 07:22 Exam: General: Alert and oriented, not in acute distress. Cardiovascular: Distant heart sounds, unable to appreciate JVD due to her body habitus Lungs: mostly clear to auscultation with minimal scattered rales at the lung bases bilaterally Abdomen:Soft, non-tender, no rigidity. Extremities:No deformity or swelling Neurological:Normal cognition and motor skills. Non-focal - Assessment and Plan (1) Acute respiratory failure with hypoxia Current Visit: Yes Status: Acute Assessment and Plan: 88% on RA at the time of presentation CT findings of moderate pericardial and bilateral small pleural effusions was given a trial of IV lasix 40mg yesterday with subsequent increase in Cr will hold off on further diuretics today and discuss with cardiology regarding the mx of pericardial effusion 6 min walk test (2) Pericardial effusion Current Visit: Yes Status: Acute Assessment and Plan: outpatient CT scan showed moderate sized pericardial effusion echo did confirm the presence of moderate pericardial effusion but without any evidence of tamponade TSH WNL, respiratory viral panel -ve was given a trial of lasix yesterday with subsequent increase in Cr will follow with cardiology, no immediate need for pericardiocentesis (3) Acute on chronic kidney failure Current Visit: Yes Status: Acute Assessment and Plan: Secondary to diuretics yesterday montor off lasix avoid nephrotoxins (4) CHF (congestive heart failure) Current Visit: Yes Status: Acute Assessment and Plan: associated with moderate pericardial effusion echo showed preserved EF and moderate pericardial effusion without tamponade hold off on lasix due to increase in Cr (5) Atrial fibrillation Current Visit: No Status: Chronic Assessment and Plan: Resume apixaban (6) Diabetes Current Visit: No Status: Chronic Assessment and Plan: hold off on Amaryl low dose sliding scale (7) HTN (hypertension) Current Visit: No Status: Chronic Assessment and Plan: Resume home meds (8) Hypothyroid Current Visit: No Status: Chronic Assessment and Plan: TSH WNL Continue home dose of levothyroxine (9) DVT prophylaxis Current Visit: No Status: Acute Assessment and Plan: On apixaban - Time Spent with Patient Total time spent is greater than 50% in coordination of care (as documented) at patient's floor/unit and/or counseling patient: 25 - 35 minutes Plan of Care Discussed with: security system sales consultant Internal Medicine: Result - Labs CBC & Chem 7: 07/29/19 02:00 07/29/19 02:00 Labs: Short CBC 07/28/19 07/29/19 Range/Units 13:47 02:00 WBC 9.8 9.0 (4.3-11.1) K/mcL Hgb 15.7 H 16.0 H (11.5-15.4) g/dL Hct 49.3 H 51.5 H (35.3-44.9) % Plt Count 127 L 105 L (140-400) K/mcL Neutrophils # 7.2 6.1 (1.6-8.9) K/mcL BMP 07/28/19 07/29/19 13:47 02:00 Sodium 141 144 Potassium 4.2 4.1 Chloride 107 107 Carbon Dioxide 28 24 BUN 28 H 36 H Creatinine 1.30 H 1.65 H Glucose 173 H 85 Calcium 9.5 9.5 Cardiac Enzymes 07/28/19 Range/Units 16:37 Troponin I < 0.03 (< 0.04) ng/mL - Impressions Impressions Echocardiogram 07/28/19 20:34 Impressions: LVEF 55%. Mild concentric left ventricular hypertrophy. Mildly dilated right ventricle. grossly normal LV function. Pacer present. Mildly dilated left atrium. There is a moderate pericardial effusion present.No evidence of tamponade. Findings: Pulmonic Valve * Normal pulmonic valve structure. * Moderate pulmonic regurgitation. ECG Findings * Paced rhythm. Left Ventricle * LVEF 55%. * Mild concentric left ventricular hypertrophy. Right Ventricle * Mildly dilated right ventricle. * grossly normal LV function. Pacer present. Left Atrium * Mildly dilated left atrium. Right Atrium * Mildly dilated right atrium. Aortic Valve * Trileaflet aortic valve. * Trileaflet aortic valve with normal function. Mitral Valve * Normal mitral valve structure. * Mild mitral regurgitation. Tricuspid Valve * Normal tricuspid valve structure. * Mild tricuspid regurgitation. Aorta * Normally sized aortic root. Pericardium * There is a moderate pericardial effusion present.No evidence of tamponade. Study Quality * Technically adequate exam. Consult Discharge Plan - Plan Referrals: Benedicto Lynn DO [Primary Care Provider] - (3) Acute on chronic kidney failure Qualifiers: Acute renal failure type: unspecified Chronic kidney disease stage: stage 3 (moderate) Qualified Code(s): N17.9 - Acute kidney failure, unspecified; N18.3 - Chronic kidney disease, stage 3 (moderate) (4) CHF (congestive heart failure) Qualifiers: Heart failure type: diastolic Heart failure chronicity: acute on chronic Qualified Code(s): I50.33 - Acute on chronic diastolic (congestive) heart failure (5) Atrial fibrillation Qualifiers: Atrial fibrillation type: paroxysmal Qualified Code(s): I48.0 - Paroxysmal atrial fibrillation (6) Diabetes Qualifiers: Diabetes mellitus type: type 2 Diabetes mellitus exterminator insulin use: without exterminator use Diabetes mellitus complication status: without complication Qualified Code(s): E11.9 - Type 2 diabetes mellitus without complications (7) HTN (hypertension) Qualifiers: Hypertension type: essential hypertension Qualified Code(s): I10 - Essential (primary) hypertension (8) Hypothyroid Qualifiers: Hypothyroidism type: unspecified Qualified Code(s): E03.9 - Hypothyroidism, unspecified
--- NOTE | 2019-07-29 12:34 | Cardiology Progress Note ---
Date of Encounter: 07/29/19 Time of Encounter: 12:30 Assessment and Plan (1) Pericardial effusion Current Visit: Yes Status: Acute Moderate pericardial effusion and small layering bilateral pleural effusion seen on chest CT. Prior echo in 2018 showed small pericardial effusion. TTE 06/2018- LVEF 60-65%. Normal right ventricular structure and function. Aorta. Normally sized aortic root. Pericardium There is a small pericardial effusion present.There is no echocardiographic evidence of tamponade. Repeat TTE this admission shows moderate pericardial effusion without tamponade. Recommend serial echo to monitor. Repeat in one week. Effusion may decrease with resolution of bronchitis. BNP 97. No overt CHF on exam. SCr elevated with IV lasix. Do not suspect CHF is cause. Continue treatment of bronchitis. If patient is here in 5 days repeat inpatient. If not cardiology will order echo for out-pt setting. Hemodynamically stable. No indication for invasive intervention. Patient and family agree with plan. Cardiology will sign off at this time. Call with changes. (2) Atrial fibrillation Current Visit: No Status: Chronic H/o PAF. On eliquis for intermediate project manager AC. Currently paced on telemetry. Qualifiers: Atrial fibrillation type: paroxysmal Qualified Code(s): I48.0 - Paroxysmal atrial fibrillation (3) Pacemaker Current Visit: Yes Status: Acute Pacemaker in place for SSS. Discussion w patient/family: The assessment and plan as outlined above was discussed with the patient and/or family members who expressed understanding and agreement. All questions were answered. Thank you for involving us in the care of your patient. Please call with any questions. Subjective Principal diagnosis: Pericardial effusion Interval history: Patient laying flat in bed without distress. Denies chest pain. Continues to have cough and intermittent JC. Objective Vital Signs, Last 4 Hours Temp Pulse Resp BP Pulse Ox 07/29/19 11:52 97.7 F 60 20 121/75 93 General: Conversant, No Apparent Distress HEENT: Atraumatic, Normocephaly, Mucus Membranes Moist Neck: No JVD, Normal carotid pulses Cardiac: Reg Rate and Rhythm, Normal S1 and S2, No Murmur, Other Lungs: Other (Expiratory rhonci scattered throughout) Neuro: Alert and responsive, No focal deficits noted Abdomen: Soft, Non-Tender Skin: No rashes noted on visualized skin Musculoskeletal: No Chest Wall Tenderness Extremities: No Clubbing, No Cyanosis, No Edema, Normal Pulses Results 07/29/19 02:00 07/29/19 02:00 Lab Results 07/28/19 07/28/19 07/28/19 13:47 13:47 13:47 WBC 9.8 Hgb 15.7 H Hct 49.3 H Plt Count 127 L Sodium 141 Potassium 4.2 Chloride 107 Carbon Dioxide 28 BUN 28 H Creatinine 1.30 H Glucose 173 H Calcium 9.5 Magnesium Troponin I TSH 2.569 07/28/19 07/29/19 07/29/19 16:37 02:00 02:00 WBC 9.0 Hgb 16.0 H Hct 51.5 H Plt Count 105 L Sodium 144 Potassium 4.1 Chloride 107 Carbon Dioxide 24 BUN 36 H Creatinine 1.65 H Glucose 85 Calcium 9.5 Magnesium 1.7 Troponin I < 0.03 TSH - Imaging and Cardiology Echo: report reviewed - EKG Interpretation EKG results cardiology: personally reviewed Consult Discharge Plan - Plan Referrals: Benedicto Lynn DO [Primary Care Provider] -
[2019-07-30 05:54] LABS: Hematocrit 51.4 % (35.3-44.9); Mean Corpuscular HGB Conc 31.1 g/dL (31.6-35.5); Mean Corpuscular Hemoglobin 30.8 pg (28.0-33.3); Mean Corpuscular Volume 98.8 fL (83.0-100.0); Mean Platelet Volume 12.9 fL (9.4-12.4); Platelet Count 102 K/mcL (140-400); Red Cell Distribution Width 13.8 % (11.5-14.5); White Blood Count 7.8 K/mcL (4.3-11.1)
[2019-07-30 06:18] LABS: Calcium 9.1 mg/dL (8.6-10.3); Potassium 4.3 mEq/L (3.5-5.1)
[2019-07-30] MEDS: Insulin LISPRO 300 UNITS/3 ML VIAL SQ SCH ×4 (09:31→22:33)
[2019-07-30] MEDS: Aspirin 81 MG TAB.CHEW PO SCH (09:36)
[2019-07-30] MEDS: amLODIPine 5 MG TABLET PO SCH (09:36)
[2019-07-30] MEDS: Apixaban 2.5 MG TABLET PO SCH ×2 (09:42→22:29)
[2019-07-30] MEDS ORDERED: Ringers Solution, Lactated 500 ML IVC SCH (10:30)
--- NOTE | 2019-07-30 10:40 | Internal Med Progress Note ---
Hospitalist Progress Note - Encounter Date of Encounter: 07/30/19 Time of Encounter: 10:37 - Subjective Interval History: I have seen and evaluated the patient at bedside. Patient denies chest pain, nausea or vomiting. denies shortness of breath. denies abdominal pain. - Exam Vitals: Temp Pulse Resp BP Pulse Ox 97.8 F 104 18 115/68 98 07/30/19 07:21 07/30/19 07:21 07/30/19 07:21 07/30/19 07:21 07/30/19 07:21 Exam: Vitals: Reviewed General: Alert and oriented x4. In no distress Cardiovascular: Irregularly irregular, normal S1 & S2, no rubs, murmurs or ga llops. Lungs: minimal expiratory wheezes b/l, no rales or crackles. Abdomen: Obese, soft, non-tender, no rigidity. Extremities: No edema. Neurological: Normal cognition and motor skills. Rest of the physical exam is non contributory - Assessment and Plan (1) Acute respiratory failure with hypoxia Current Visit: Yes Status: Acute Assessment and Plan: patient mild expiratory wheezing on auscultation. will start patient on a short course of prednisone. continue bronchodilators Q4RT PRN. and O2 replacement by nasal cannula, titrate for O2sat >92%. Incentive spirometry. (2) Pericardial effusion Current Visit: Yes Status: Acute Assessment and Plan: outpatient CT scan showed moderate sized pericardial effusion. echo did confirm the presence of moderate pericardial effusion but without any evidence of tamponade cardiology, no immediate need for pericardiocentesis. If patient is here in 5 days repeat Echo as inpatient. diuretics on hold due to worsening kidney function. (3) Acute on chronic kidney failure Current Visit: Yes Status: Acute Assessment and Plan: possible related to IV diuretics. continue to hold diuretics. started on gentle IV hydration with LR@75ml/hr [id number]. hold lisinopril (4) CHF (congestive heart failure) Current Visit: Yes Status: Chronic Assessment and Plan: no crackle on auscultation, no peripheral edema. patient euvolemic. continue to hold furosemide due to worsening kidney function. strict intake and output plus daily. (5) Atrial fibrillation Current Visit: No Status: Chronic Assessment and Plan: s/p pacemaker. on apixaban for secondary stroke prevention. (6) Diabetes Current Visit: No Status: Chronic Assessment and Plan: blood sugar is well controlled. c/w lispro medium dose sliding scale ac and carbs controlled diet. levemir 5 units hs added (7) HTN (hypertension) Current Visit: No Status: Chronic Assessment and Plan: BP is well controlled on amlodipine. (8) Hypothyroid Current Visit: No Status: Chronic Assessment and Plan: On levothyroxine. DVT Prophylaxis: Intermittent pneumatic compression for dvt prophylaxis. - Summary of Assessment and Plan Summary of Assessment and Plan: Patient to remain in the hospital due to worsening kidney function. - Time Spent with Patient Total time spent is greater than 50% in coordination of care (as documented) at patient's floor/unit and/or counseling patient: Greater than 35 minutes (40) Plan of Care Discussed with: patient (her daughter and the nurse.) Internal Medicine: Result - Labs CBC & Chem 7: 07/30/19 05:08 07/30/19 05:08 Labs: Short CBC 07/30/19 Range/Units 05:08 WBC 7.8 (4.3-11.1) K/mcL Hgb 16.0 H (11.5-15.4) g/dL Hct 51.4 H (35.3-44.9) % Plt Count 102 L (140-400) K/mcL BMP 07/30/19 05:08 Sodium 145 Potassium 4.3 Chloride 105 Carbon Dioxide 28 BUN 54 H Creatinine 2.12 H Glucose 131 H Calcium 9.1 Consult Discharge Plan - Plan Referrals: Benedicto Lynn DO [Primary Care Provider] - (3) Acute on chronic kidney failure Qualifiers: Acute renal failure type: unspecified Chronic kidney disease stage: stage 3 (moderate) Qualified Code(s): N17.9 - Acute kidney failure, unspecified; N18.3 - Chronic kidney disease, stage 3 (moderate) (4) CHF (congestive heart failure) Qualifiers: Heart failure type: diastolic Heart failure chronicity: acute on chronic Qualified Code(s): I50.33 - Acute on chronic diastolic (congestive) heart failure (5) Atrial fibrillation Qualifiers: Atrial fibrillation type: paroxysmal Qualified Code(s): I48.0 - Paroxysmal atrial fibrillation (6) Diabetes Qualifiers: Diabetes mellitus type: type 2 Diabetes mellitus fpc insulin use: without care coordination manager use Diabetes mellitus complication status: without complication Qualified Code(s): E11.9 - Type 2 diabetes mellitus without complications (7) HTN (hypertension) Qualifiers: Hypertension type: essential hypertension Qualified Code(s): I10 - Essential (primary) hypertension (8) Hypothyroid Qualifiers: Hypothyroidism type: unspecified Qualified Code(s): E03.9 - Hypothyroidism, unspecified
[2019-07-30] MEDS: predniSONE 20 MG TABLET PO SCH (13:01)
[2019-07-30] MEDS ORDERED: Insulin DETEMIR 100 UNIT/ML X5UNITS SQ SCH (21:00)
[2019-07-31 05:33] LABS: Magnesium 2.1 mg/dL (1.6-2.6); Phosphorous 3.5 mg/dL (2.7-4.5); Potassium 4.5 mEq/L (3.5-5.1)
[2019-07-31] MEDS: Insulin LISPRO 300 UNITS/3 ML VIAL SQ SCH ×4 (08:27→20:34)
[2019-07-31] MEDS: predniSONE 20 MG TABLET PO SCH (08:41)
[2019-07-31] MEDS: amLODIPine 5 MG TABLET PO SCH (08:41)
[2019-07-31] MEDS: Aspirin 81 MG TAB.CHEW PO SCH (08:41)
[2019-07-31] MEDS: Apixaban 2.5 MG TABLET PO SCH ×2 (08:41→20:32)
--- NOTE | 2019-07-31 14:05 | Internal Med Progress Note ---
Hospitalist Progress Note - Encounter Date of Encounter: 07/31/19 Time of Encounter: 14:03 - Subjective Interval History: I have seen and evaluated the patient at bedside. patient reported good urinary output, and started her breathing continues to improve. denies chest pain, nausea or vomiting. - Exam Vitals: Temp Pulse Resp BP Pulse Ox 97.9 F 60 18 139/86 97 07/31/19 07:43 07/31/19 07:43 07/31/19 07:43 07/31/19 07:43 07/31/19 04:49 Exam: Vitals: Reviewed General: Alert and oriented x4. In no distress Cardiovascular: Irregularly irregular, normal S1 & S2, no rubs, murmurs or gallops. Lungs: No wheezing, mild rales right lower lobe, no crackles. Abdomen: Obese, soft, non-tender, no rigidity. NABS in all 4 quadrants Extremities: No edema. Neurological: No focal neurological abnormalities. Rest of the physical exam is non contributory - Assessment and Plan (1) Acute on chronic kidney failure Current Visit: Yes Status: Acute Assessment and Plan: kidney function improving following gentle IV hydration. Plan oral hydration encouraged. will reassess kidney function tomorrow morning avoid nephrotoxic medications (2) Acute respiratory failure with hypoxia Current Visit: Yes Status: Resolved Assessment and Plan: chest is clear to auscultation b/l. Plan titrate patient off O2 decrease prednisone to 30mg/PO daily c/w bronchodilators Q4RT PRN. Incentive spirometry. (3) Pericardial effusion Current Visit: Yes Status: Acute Assessment and Plan: outpatient CT scan showed moderate sized pericardial effusion. echo did confirm the presence of moderate pericardial effusion but without any evidence of tamponade cardiology, no immediate need for pericardiocentesis. patient has an appointment to follow up with a television installer helper next (4) Atrial fibrillation Current Visit: No Status: Chronic Assessment and Plan: Hx of A.fib with slow ventricular response. s/p pacemaker. c/w apixaban for secondary stroke prevention. (5) Diabetes Current Visit: No Status: Chronic Assessment and Plan: blood sugar is sub-optimally controlled. increase levemir to 5units BID, continue lispro medium dose sliding scale ac. carbs controlled diet. (6) HTN (hypertension) Current Visit: No Status: Chronic Assessment and Plan: BP is well controlled on lisinopril 5mg/PO daily. (7) Hypothyroid Current Visit: No Status: Chronic Assessment and Plan: c/w levothyroxine 125mcg/po daily. DVT Prophylaxis: intermittent pneumatic compression for dvt prophylaxis. - Summary of Assessment and Plan Summary of Assessment and Plan: Patient to remain in the hospital for the following 24 hours to monitor kidney function. Potential discharge tomorrow morning. - Time Spent with Patient Total time spent is greater than 50% in coordination of care (as documented) at patient's floor/unit and/or counseling patient: Greater than 35 minutes (40) Plan of Care Discussed with: patient (and her daughter.) Internal Medicine: Result - Labs CBC & Chem 7: 07/30/19 05:08 07/31/19 05:00 Labs: BMP 07/31/19 05:00 Sodium 144 Potassium 4.5 Chloride 108 H Carbon Dioxide 27 BUN 54 H Creatinine 1.53 H Glucose 213 H Calcium 9.0 Consult Discharge Plan - Plan Referrals: Benedicto Lynn DO [Primary Care Provider] - _ (1) Acute on chronic kidney failure Qualifiers: Acute renal failure type: unspecified Chronic kidney disease stage: stage 3 (moderate) Qualified Code(s): N17.9 - Acute kidney failure, unspecified; N18.3 - Chronic kidney disease, stage 3 (moderate) (4) Atrial fibrillation Qualifiers: Atrial fibrillation type: paroxysmal Qualified Code(s): I48.0 - Paroxysmal atrial fibrillation (5) Diabetes Qualifiers: Diabetes mellitus type: type 2 Diabetes mellitus prison insulin use: without prison use Diabetes mellitus complication status: without complication Qualified Code(s): E11.9 - Type 2 diabetes mellitus without complications (6) HTN (hypertension) Qualifiers: Hypertension type: essential hypertension Qualified Code(s): I10 - Essential (primary) hypertension (7) Hypothyroid Qualifiers: Hypothyroidism type: unspecified Qualified Code(s): E03.9 - Hypothyroidism, unspecified
[2019-07-31] MEDS: Insulin DETEMIR 100 UNIT/ML X5UNITS SQ SCH (20:33)
[2019-07-31] MEDS: Nystatin POWDER 30 GM BOTTLE TP SCH (23:46)
[2019-08-01 06:32] LABS: Calcium 9.3 mg/dL (8.6-10.3); Magnesium 2.2 mg/dL (1.6-2.6); Phosphorous 3.2 mg/dL (2.7-4.5); Potassium 4.5 mEq/L (3.5-5.1)
[2019-08-01 08:03] VITALS: BP 140/79
[2019-08-01] MEDS: Insulin LISPRO 300 UNITS/3 ML VIAL SQ SCH (08:05)
--- NOTE | 2019-08-01 08:38 | Discharge Summary ---
Date of Encounter: 08/01/19 Time of Encounter: 08:33 - Discharge Diagnosis (1) Acute on chronic kidney failure Priority: Primary Status: Resolved Qualifiers: Acute renal failure type: unspecified Chronic kidney disease stage: stage 3 (moderate) Qualified Code(s): N17.9 - Acute kidney failure, unspecified; N18.3 - Chronic kidney disease, stage 3 (moderate) (2) Acute respiratory failure with hypoxia Priority: Primary Status: Resolved (3) Pericardial effusion Priority: Primary Status: Acute (4) Atrial fibrillation Priority: Secondary Status: Chronic Qualifiers: Atrial fibrillation type: paroxysmal Qualified Code(s): I48.0 - Paroxysmal atrial fibrillation (5) Diabetes Priority: Secondary Status: Chronic Qualifiers: Diabetes mellitus type: type 2 Diabetes mellitus half-way insulin use: without oil heaterman use Diabetes mellitus complication status: without complication Qualified Code(s): E11.9 - Type 2 diabetes mellitus without complications (6) HTN (hypertension) Priority: Secondary Status: Chronic Qualifiers: Hypertension type: essential hypertension Qualified Code(s): I10 - Essential (primary) hypertension (7) Hypothyroid Priority: Secondary Status: Chronic Qualifiers: Hypothyroidism type: unspecified Qualified Code(s): E03.9 - Hypothyroidism, unspecified (8) CHF (congestive heart failure) Priority: Secondary Status: Chronic Qualifiers: Heart failure type: diastolic Heart failure chronicity: chronic Qualified Code(s): I50.32 - Chronic diastolic (congestive) heart failure (9) Morbid obesity with BMI of 50.0-59.9, adult Priority: Secondary Status: Chronic (10) Thrombocytopenia Priority: Secondary Status: Chronic Hospital course: Ms. Malagon is a 89 year old female history of atrial fibrillation status post pacemaker insertion, heart failure with preserved EF, moderate pulmonary hypertension, morbid obesity, CKD, diabetes, hypertension, who was transferred from [facility] due to the CT finding of moderate pericardial effusion. Patient reported 3 weeks Hx of progressive dyspnea with exertion prior to presenting to the ED and being treated in the outpatient setting with oral antibiotics for acute bronchitis. Patient was sent by her PCP to have a CT chest, during the procedure patient became severely dysneic and was sent to the ED. Patient found to have a moderate size pleural effusion, cardiology was consulted and recommended conservative management with outpatient Echo follow up within a week. During this admission patient developed JIM, which corrected with gentle IV hydration. Patient acute symptoms resolved with oral steroids. Patient is hemodynamically stable to be discharged, recommended to follow up with cardiology as outpatient. The patient has an appointment to see a acoustical carpenter on 08/07/19. - Time Spent with Patient Total time spent providing and/or coordinating discharge services: Time spent: Greater than 30 minutes (35) - Discharge Medications Prescriptions: New predniSONE [PredniSONE] 20 mg PO DAILY 1 Days #1 tablet predniSONE [PredniSONE] 10 mg PO DAILY 1 Days #1 tablet Continued Glimepiride [Amaryl] 4 mg PO DAILY Aspirin 81 mg PO DAILY Simvastatin [Zocor] 20 mg PO HS Levothyroxine [Synthroid] 137 mcg PO DAILY@0630 Amlodipine Besylate 5 mg PO DAILY Lisinopril [Zestril] 5 mg PO DAILY Albuterol Sulfate [Ventolin Hfa] 2 puff IH Q4H PRN PRN Reason: Dyspnea Guaifenesin/Codeine Phosphate [Guaifenesin-Codeine Syrup] 5 - 10 ml PO Q4-6H PRN PRN Reason: Cough Nystatin POWDER [Nystop] 1 appl TP BID Minocycline [Minocin] 50 mg PO DAILY Apixaban [Eliquis] 2.5 mg PO BID Acetaminophen [8Hr Arthritis Pain] 650 mg PO TID PRN PRN Reason: Pain Discontinued Doxycycline Hyclate 100 mg PO BID Home Medications: Aspirin 81 mg PO DAILY 06/15/15 [History] Glimepiride [Amaryl] 4 mg PO DAILY 06/15/15 [History] Lisinopril [Zestril] 5 mg PO DAILY 12/16/17 [History] Levothyroxine [Synthroid] 137 mcg PO DAILY@0630 07/24/18 [History] Simvastatin [Zocor] 20 mg PO HS 07/24/18 [History] Acetaminophen [8Hr Arthritis Pain] 650 mg PO TID PRN 07/21/19 [History] Albuterol Sulfate [Ventolin Hfa] 2 puff IH Q4H PRN 07/21/19 [History] Apixaban [Eliquis] 2.5 mg PO BID 07/21/19 [History] Guaifenesin/Codeine Phosphate [Guaifenesin-Codeine Syrup] 5 - 10 ml PO Q4-6H PRN 07/21/19 [History] Minocycline [Minocin] 50 mg PO DAILY 07/21/19 [History] Nystatin POWDER [Nystop] 1 appl TP BID 07/21/19 [History] Amlodipine Besylate 5 mg PO DAILY 07/28/19 [History] predniSONE [PredniSONE] 10 mg PO DAILY 1 Days #1 tablet 08/01/19 [Rx] predniSONE [PredniSONE] 20 mg PO DAILY 1 Days #1 tablet 08/01/19 [Rx] Allergies/Adverse Reactions: Allergy/AdvReac Type Severity Reaction Status Date / Time No Known Allergies Allergy Verified 07/21/19 16:38 Date of admission: 07/30/19 15:16 Primary care physician: Benedicto Lynn DO Consults: 07/28/19 12:10 Consult to Pastoral Services [CONS] Routine Comment: 07/28/19 12:38 Consult to Cardiology [CONS] Routine Comment: Consulting Provider: Card[facility] [place] Reason for Consult: pericardial effusion Call Completed: Yes 07/29/19 10:38 Consult to Occupational Therapy [CONS] Routine Comment: Evaluate, develop and implement POC Reason for Consult: deconditioning Does patient have active BEDREST order?: No Is patient medically & hemodynamically stable?: Yes Consult to Physical Therapy [CONS] Routine Comment: Evaluate, develop and implement POC Reason for Consult: deconditioning Does patient have active BEDREST order?: No Is patient medically & hemodynamically stable?: Yes - Constitutional Vitals: Temp Pulse Resp BP Pulse Ox 98.0 F 60 18 140/79 97 08/01/19 07:57 08/01/19 07:57 08/01/19 07:57 08/01/19 07:57 08/01/19 07:57 Exam: Vitals: Reviewed General: Alert and oriented x4. In no distress Cardiovascular: Irregularly irregular, normal S1 & S2, no rubs, murmurs or gallops. Lungs: No wheezing, rales or crackles. Abdomen: Obese, soft, non-tender, no rigidity. NABS in all 4 quadrants Extremities: No edema. Neurological: No focal neurological abnormalities. Rest of the physical exam is non contributory - Patient Status Disposition: Home, Self-Care Condition: Fair Functional capacity at discharge: independent ambulation Overall status at discharge: patient is back to baseline - Discharge Instructions Follow Up With: Benedicto Lynn DO [Primary Care Provider] - - Diet and Activity Activity: resume usual activities as tolerated Diet: diabetic diet, low salt diet
--- NOTE | 2019-08-01 08:48 | Physician Discharge Referral ---
Home Health/Hosp Referral Info Transfer to: Home Health - Diagnosis (1) Acute on chronic kidney failure Priority: Primary Status: Resolved (2) Acute respiratory failure with hypoxia Priority: Secondary Status: Resolved (3) Pericardial effusion Priority: Secondary Status: Acute (4) Atrial fibrillation Priority: Secondary Status: Chronic (5) Diabetes Priority: Secondary Status: Chronic (6) HTN (hypertension) Priority: Secondary Status: Chronic (7) Hypothyroid Priority: Secondary Status: Chronic (8) CHF (congestive heart failure) Priority: Secondary Status: Chronic (9) Morbid obesity with BMI of 50.0-59.9, adult Priority: Secondary Status: Chronic (10) Thrombocytopenia Priority: Secondary Status: Chronic - Respiratory Orders None Smoking Cessation: Smoking cessation has been advised. For more information, call the [place] Tobacco Quit Line at 3-939-AMJRNOW. - Diet/Nutrition Diet/Nutrition Orders: Regular - Activity Activity Orders: Ambulate - Services Needed Following services are medically necessary services: Home Health Aide, Physical Therapy, Occupational Therapy - Transfer Medications Prescriptions: predniSONE [PredniSONE] 10 mg PO DAILY 1 Days #1 tablet Transmission Status: Received by [facility] #[id number] predniSONE [PredniSONE] 20 mg PO DAILY 1 Days #1 tablet Transmission Status: Received by [facility] #[id number] Home Medications: Aspirin 81 mg PO DAILY 06/15/15 [History] Glimepiride [Amaryl] 4 mg PO DAILY 06/15/15 [History] Lisinopril [Zestril] 5 mg PO DAILY 12/16/17 [History] Levothyroxine [Synthroid] 137 mcg PO DAILY@0630 07/24/18 [History] Simvastatin [Zocor] 20 mg PO HS 07/24/18 [History] Acetaminophen [8Hr Arthritis Pain] 650 mg PO TID PRN 07/21/19 [History] Albuterol Sulfate [Ventolin Hfa] 2 puff IH Q4H PRN 07/21/19 [History] Apixaban [Eliquis] 2.5 mg PO BID 07/21/19 [History] Guaifenesin/Codeine Phosphate [Guaifenesin-Codeine Syrup] 5 - 10 ml PO Q4-6H PRN 07/21/19 [History] Minocycline [Minocin] 50 mg PO DAILY 07/21/19 [History] Nystatin POWDER [Nystop] 1 appl TP BID 07/21/19 [History] Amlodipine Besylate 5 mg PO DAILY 07/28/19 [History] predniSONE [PredniSONE] 10 mg PO DAILY 1 Days #1 tablet 08/01/19 [Rx] predniSONE [PredniSONE] 20 mg PO DAILY 1 Days #1 tablet 08/01/19 [Rx] Allergies/Adverse Reactions: Allergy/AdvReac Type Severity Reaction Status Date / Time No Known Allergies Allergy Verified 07/21/19 16:38 Certification: Further, I certify that my clinical findings support that this patient is homebound (i.e. absences from home require considerable and taxing effort and are for medical reasons or yarsani services or infrequently or short duration when for other reasons) because: Homebound Reason: Patient requires assistance of a person or device to safely leave home Attestation: My signature below is to certify that this patient is under my care and that I, or nurse practitioner, or a physician's curriculum assistant working with me, has a [id number] encounter with this patient.
[2019-08-01] MEDS: Aspirin 81 MG TAB.CHEW PO SCH (08:51)
[2019-08-01] MEDS: amLODIPine 5 MG TABLET PO SCH (08:51)
[2019-08-01] MEDS: Insulin DETEMIR 100 UNIT/ML X5UNITS SQ SCH (08:52)
[2019-08-01] MEDS: Apixaban 2.5 MG TABLET PO SCH (08:52)
[2019-08-01] MEDS: Nystatin POWDER 30 GM BOTTLE TP SCH (08:53)
[2019-08-01] MEDS ORDERED: predniSONE 10 MG TABLET PO SCH (09:00)
[2019-08-01] MEDS ORDERED: FLU Vac QV 19-20 (6Month+)/PF 0.5 ML SYRINGE IM ONE (11:00)
== END 2019-08-01 13:11 | disposition home or self-care (01) | DRG 291 ==
LOC: 2NENU → SUATTDRO 11:47
PROVIDERS: ADMIT Internal Medicine; ATTEND Internal Medicine